=== PATIENT | female | born 1995 | race Caucasian/White ===

== ENCOUNTER 2017-04-04 16:14 | Emergency (ER) | payer OTHER ==
[2017-04-04] MEDS ORDERED: ONDANSETRON ODT 4 MG TABLET TL STA (16:47)
--- NOTE | 2017-04-04 16:51 | ED Physician Documentation ---
PD HPI NVD - Stated complaint Stated Complaint: DIZZY/VOMITING - Chief complaint Chief Complaint: Abd Pain - History obtained from History obtained from: Patient, Family - History of Present Illness Timing - onset: Enter time (0900), Today Timing - duration: Hours Timing - details: Gradual onset, Still present Associated symptoms: Abdominal pain, Dizzy, Loss of appetite Contributing factors: No: Sick contact, Bad food Improved by: Laying still, Meds Similar symptoms before: No diagnosis Recently seen: Not recently seen - Additonal information Additional information: 21 y/o female has had nausea for years. Today she has had vomiting a number of times and she is dizzy. Review of Systems Constitutional: denies: Fever Eyes: denies: Decreased vision Ears: denies: Ear pain Nose: denies: Rhinorrhea / runny nose, Congestion Throat: denies: Sore throat Cardiac: denies: Chest pain / pressure, Palpitations Respiratory: denies: Dyspnea, Cough GI: reports: Abdominal Pain, Nausea, Vomiting. denies: Constipation, Diarrhea : denies: Dysuria, Frequency PD PAST MEDICAL HISTORY - Past Medical History Past Medical History: No - Past Surgical History Past Surgical History: Yes HEENT: Tonsil/Adenoidectomy - Present Medications Home Medications: Ambulatory Orders Medication Instructions Recorded Confirmed Ondansetron Odt [Zofran] 4 mg TL Q6H PRN #10 tablet 04/04/17 - Allergies Allergies/Adverse Reactions: Allergies Allergy/AdvReac Type Severity Reaction Status Date / Time No Known Drug Allergies Allergy Verified 04/04/17 16:23 - Social History Does the pt smoke?: No Smoking Status: Never smoker Does the pt drink ETOH?: No Does the pt have substance abuse?: No - Immunizations Immunizations are current?: Yes PD ED PE NORMAL - Vitals Vital signs reviewed: Yes (tachy and hypertentsive) - General General: Alert and oriented X 3, No acute distress, Well developed/nourished - HEENT HEENT: Atraumatic, PERRL, EOMI, Ears normal, Moist mucous membranes, Pharynx benign, Dentition benign - Neck Neck: Supple, no meningeal sign, No bony TTP - Cardiac Cardiac: RRR, No murmur - Respiratory Respiratory: No respiratory distress, Clear bilaterally - Abdomen Abdomen: Soft, Non tender - Back Back: No CVA TTP, No spinal TTP - Derm Derm: Normal color, Warm and dry, No rash - Extremities Extremities: No deformity, No edema - Neuro Neuro: No motor deficit, No sensory deficit - Psych Psych: Normal mood, Normal affect Results - Vitals Vitals: Vital Signs - 24 hr 04/04/17 16:20 Temperature 36.8 C Heart Rate 104 H Respiratory 18 Rate Blood Pressure 149/99 H O2 Saturation 99 Oxygen O2 Source Room air - Labs Labs: Laboratory Tests 04/04/17 04/04/17 04/04/17 16:50 17:00 17:00 WBC 9.4 RBC 4.68 Hgb 14.0 Hct 41.5 MCV 88.8 MCH 30.0 MCHC 33.8 RDW 12.5 Plt Count 321 MPV 7.4 L Neut # 5.7 Lymph # 2.8 [place] # 0.8 Eos # 0.1 Baso # 0.1 Absolute Nucleated RBC 0.00 Nucleated RBCs 0.0 Sodium 138 Potassium 3.9 Chloride 99 L Carbon Dioxide 30 Anion Gap 9.0 BUN 11 Creatinine 0.8 Estimated GFR (MDRD) 90 Glucose 90 Calcium 9.7 Total Bilirubin 0.5 AST 21 ALT 16 Alkaline Phosphatase 36 L Total Protein 7.9 Albumin 4.8 Globulin 3.1 Albumin/Globulin Ratio 1.5 Lipase 27 Urine Color YELLOW Urine Clarity CLEAR Urine pH 6.0 Ur Specific [place] 1.015 Urine Protein NEGATIVE Urine Glucose (UA) NEGATIVE Urine Ketones NEGATIVE Urine Occult Blood SMALL H Urine Nitrite NEGATIVE Urine Bilirubin NEGATIVE Urine Urobilinogen 0.2 (NORMAL) Ur Leukocyte Esterase NEGATIVE Urine RBC 0-5 Urine WBC 0-3 Ur Squamous Epith Cells MANY Squamous H Urine Bacteria Few Ur Microscopic Review INDICATED Urine Culture Comments NOT INDICATED Urine HCG, Qual NEGATIVE Procedures - IVC sono (time) 1640 Bedside IVC sono: IVC measures (cm) (1.66), IVC collapsed c insp (cm) (1.34), Euvolemia PD MEDICAL DECISION MAKING - ED course Complexity details: reviewed old records, reviewed results, re-evaluated patient , considered differential, d/w patient, d/w family ED course: 21 y/o female with vomiting today associated with dizziness is found to be euvolemic and she is given zofran. She has had a problem with nausea for years and she usually does not have vomiting. Today she feels this is related to anxiety and she feels the daily nausea is realted to anxiety as well. She has been on prozac previously and zolft as a child and she is reluctant to do counselling. 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 This can happen from the stress of the visit itself, from a current illness or circumstance or from uncontrolled hypertension. If you take blood pressure medications take your usual mediations, have your blood pressure re-checked in an appropriate setting and follow up any elevation with your primary care doctor.
[2017-04-04 17:08] LABS: BILIRUBIN,URINE NEGATIVE (NEGATIVE)
[2017-04-04 17:09] LABS: BASOPHILS # (AUTO) 0.1 10^3/uL (0.0-0.1); BASOPHILS % (AUTO) 0.6 %; EOSINOPHILS # (AUTO) 0.1 10^3/uL (0.0-0.7); EOSINOPHILS % (AUTO) 1.2 %; HCT - HEMATOCRIT 41.5 % (37.0-47.0); LYMPHOCYTES # (AUTO) 2.8 10^3/uL (1.5-3.5); LYMPHOCYTES % (AUTO) 29.5 %; MEAN CORPUSCULAR HGB CONC 33.8 g/dL (32.0-36.0); MEAN CORPUSCULAR VOLUME 88.8 fL (81.0-99.0); MEAN PLATELET VOLUME 7.4 fL (7.9-10.8); MONOCYTES # (AUTO) 0.8 10^3/uL (0.0-1.0); NEUTROPHILS # (AUTO) 5.7 10^3/uL (1.5-6.6); NEUTROPHILS % (AUTO) 60.7 %; RED BLOOD COUNT 4.68 10^6/uL (4.20-5.40); RED CELL DISTRIBUTION WIDTH 12.5 % (12.0-15.0); UNCORRECTED WHITE BLOOD COUNT 9.4 x10^3/uL; WHITE BLOOD COUNT 9.4 x10^3/uL (4.8-10.8)
[2017-04-04] MEDS ORDERED: ONDANSETRON ODT 4 MG TABLET ONE (17:10)
[2017-04-04 17:12] LABS: HCG UR QUAL NEGATIVE; UA w/ MICROSCOPIC CHARGE YES
[2017-04-04 17:23] LABS: ALBUMIN/GLOBULIN RATIO 1.5 (1.0-2.2); BILIRUBIN,TOTAL 0.5 mg/dL (0.2-1.0); CALCIUM 9.7 mg/dL (8.5-10.3); CREATININE 0.8 mg/dL (0.4-1.0); POTASSIUM 3.9 mmol/L (3.5-5.0); TOTAL PROTEIN 7.9 g/dL (6.7-8.2)
[2017-04-04 17:25] LABS: UR CULTURE IF IND NOT INDICATED; WBC,URINE 0-3 /HPF (0-5)
[2017-04-04 18:23] VITALS: BP 142/80
== END 2017-04-04 18:21 | disposition home or self-care (01) ==
LOC: ED 16:14
DX: F41.9 Anxiety disorder, unspecified (principal); R11.2 Nausea with vomiting, unspecified
CPT/HCPCS: 36415; 80053; 81001; 81025; 83690; 85025; 99283; 99284; Q0162; 81003; 87086

== ENCOUNTER 2017-08-05 18:06 | Emergency (ER) | payer OTHER ==
[2017-08-05] MEDS ORDERED: HYDROmorphone 1 MG/ML CARPUJECT IVP STA ×2 (18:52→22:08)
[2017-08-05] MEDS ORDERED: ONDANSETRON 4 MG/2 ML VIAL IVP STA (18:52)
[2017-08-05] MEDS ORDERED: SODIUM CHLORIDE 0.9% 1,000 ML IV ONE (18:52)
--- NOTE | 2017-08-05 18:54 | ED Physician Documentation ---
History of Present Illness - Stated complaint Stated Complaint: FEMALE - Chief complaint Chief Complaint: Abd Pain - History obtained from History obtained from: Patient, Family - History of Present Illness Timing: How many days ago (10) Pain level max: 10 Pain level now: 10 Improved by: Nothing Worsened by: Movement, palpation - Additonal information Additional information: Patient is a 22-year-old female who presents to the emergency department with abdominal pain and pelvic pain for the past 10 days. States in the right lower quadrant/right pelvic area. Worse with movement. States that the pain has spread to her back and upper back. States that nothing is helping the pain. Has been taking Motrin and Tylenol without relief. No fevers. Started vaginal bleeding today. Has approximately 2-3 days late for her menses. Review of Systems Ten Systems: 10 systems reviewed and negative Constitutional: denies: Fever, Chills Nose: denies: Rhinorrhea / runny nose, Congestion Throat: denies: Sore throat Cardiac: denies: Chest pain / pressure Respiratory: denies: Cough GI: denies: Nausea, Vomiting, Diarrhea : reports: Missed period (last menses was light and spotting. Her current menses is heavier than usual). denies: Dysuria, Frequency, Hesitancy, Discharge , Now EGA Skin: denies: Rash Musculoskeletal: denies: Neck pain, Back pain Neurologic: denies: Focal weakness, Numbness, Headache PD PAST MEDICAL HISTORY - Past Medical History Past Medical History: Yes Psych: Depression, Anxiety - Past Surgical History Past Surgical History: Yes HEENT: Tonsil/Adenoidectomy - Present Medications Home Medications: Ambulatory Orders Medication Instructions Recorded Confirmed Acetaminophen [Tylenol] 1,000 mg PO BID 08/05/17 08/05/17 Alprazolam [Xanax] 0.5 mg PO DAILY 08/05/17 08/05/17 Metronidazole [Flagyl] 500 mg PO BID #14 tablet 08/05/17 Oxycodone HCl/Acetaminophen 1 - 2 each PO Q6H PRN #20 tablet 08/05/17 [Percocet 5-325 mg Tablet] Sertraline [Zoloft] 75 mg PO DAILY 08/05/17 08/05/17 - Allergies Allergies/Adverse Reactions: Allergies Allergy/AdvReac Type Severity Reaction Status Date / Time No Known Drug Allergies Allergy Verified 04/04/17 16:23 - Social History Does the pt smoke?: No Smoking Status: Never smoker Does the pt drink ETOH?: No Does the pt have substance abuse?: No - Immunizations Immunizations are current?: Yes PD ED PE NORMAL - Vitals Vital signs reviewed: Yes - General General: Alert and oriented X 3, No acute distress, Well developed/nourished - HEENT HEENT: PERRL, Moist mucous membranes - Neck Neck: Supple, no meningeal sign - Cardiac Cardiac: RRR, Strong equal pulses - Respiratory Respiratory: No respiratory distress, Clear bilaterally - Abdomen Abdomen: Soft, Non distended, Other (diffusely TTP. voluntary guarding. no peritoneal signs. 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 No masses. No cervical motion tenderness or adnexal tenderness. Slight white vaginal discharge present) - Back Back: No CVA TTP, No spinal TTP - Derm Derm: Warm and dry, No rash - Extremities Extremities: No edema, No calf tenderness / cord - Neuro Neuro: Alert and oriented X 3 - Psych Psych: Normal mood, Normal affect Results - Vitals Vitals: Vital Signs - 24 hr 08/05/17 08/05/17 18:17 22:07 Temperature 36.8 C 36.3 C L Heart Rate 82 73 Respiratory 16 16 Rate Blood Pressure 138/91 H 134/68 H O2 Saturation 97 96 Oxygen O2 Source Room air - Labs Labs: Microbiology 08/05/17 22:40 JENNIFER Preparation - Final Other - Vaginal 08/05/17 22:40 Wet Prep - Final Vaginal Laboratory Tests 08/05/17 08/05/17 08/05/17 18:41 18:59 18:59 WBC 7.6 RBC 4.39 Hgb 13.2 Hct 39.0 MCV 88.9 MCH 30.1 MCHC 33.8 RDW 12.4 Plt Count 297 MPV 7.6 L Neut # 3.8 Lymph # 2.9 [place] # 0.6 Eos # 0.2 Baso # 0.1 Absolute Nucleated RBC 0.00 Nucleated RBC % 0.0 Sodium 139 Potassium 3.7 Chloride 102 Carbon Dioxide 27 Anion Gap 10.0 BUN 17 Creatinine 0.8 Estimated GFR (MDRD) 89 Glucose 87 Calcium 9.8 Total Bilirubin 0.2 AST 19 ALT 13 Alkaline Phosphatase 44 Total Protein 8.2 Albumin 4.9 Globulin 3.3 Albumin/Globulin Ratio 1.5 Lipase 39 Urine Color YELLOW Urine Clarity HAZY Urine pH 6.0 Ur Specific [place] 1.020 Urine Protein NEGATIVE Urine Glucose (UA) NEGATIVE Urine Ketones NEGATIVE Urine Occult Blood LARGE H Urine Nitrite NEGATIVE Urine Bilirubin NEGATIVE Urine Urobilinogen 0.2 (NORMAL) Ur Leukocyte Esterase NEGATIVE Urine RBC TNTC H Urine WBC 4-5 Ur Squamous Epith Cells NONE SEEN Urine Bacteria None Seen Ur Microscopic Review INDICATED Urine Culture Comments NOT INDICATED Urine HCG, Qual NEGATIVE - Rads (name of study) CT abdomen and pelvis Radiology: Prelim report reviewed, EMP read contemporaneously, See rad report ( Normal abdomen and pelvis CT. ) Pelvic ultrasound Radiology: Prelim report reviewed, EMP read contemporaneously, See rad report ( Normal sonographic appearance of the pelvis) PD MEDICAL DECISION MAKING - ED course Complexity details: reviewed results, re-evaluated patient, considered differential, d/w patient, d/w family ED course: Patient is a 22-year-old female who presents to the emergency department with 10 days worth of pelvic/abdominal/back pain. Unclear etiology. Will treat for bacterial vaginitis. No acute findings on laboratory testing, urinalysis, CT or US. Pain well controlled. Tolerating p.o. without difficulty. Afebrile. No evidence of , ectopic . Appears to have menorrhagia from her last menses that was very light. Patient and family counseled regarding signs and symptoms for which I believe and urgent re-evaluation would be necessary. Patient with good understanding of and agreement to plan and is comfortable going home at this time This document was made in part using voice recognition software. While efforts are made to proofread this document, sound alike and grammatical errors may occur. Departure - Departure Disposition: Home, Self Care Clinical Impression: Bacterial vaginitis Abdominal pain Qualifiers: Abdominal location: unspecified location Qualified Code(s): R10.9 - Unspecified abdominal pain Menorrhagia Qualifiers: Menorrahagia type: with regular cycle Qualified Code(s): N92.0 - Excessive and frequent menstruation with regular cycle Condition: Good Instructions: ED Abdominal Pain Unkn Cause, ED Bleeding Menstrual Heavy, ED Vaginosis Bacterial Follow-Up: ISABELA BELLE MD [Physician No Access] - Within 1 week Prescriptions: Metronidazole [Flagyl] 500 mg PO BID #14 tablet Oxycodone HCl/Acetaminophen [Percocet 5-325 mg Tablet] 1 - 2 each PO Q6H PRN # 20 tablet PRN Reason: pain Comments: Take the Flagyl until gone. Return if you worsen. The cause of your symptoms is unclear, but may be related to bacterial vaginitis. We did send testing for gonorrhea and chlamydia, even though your low risk in your exam does not appear consistent with this. Your CT scan and pelvic ultrasound were both normal. Your laboratory testing is normal. Do not drink alcohol or drive while on narcotic pain medicine. Note that many narcotic pain relievers also contain tylenol/acetaminophen. Please ensure that your total dose of acetaminophen from all sources does not exceed 3 grams (3000mg) per day. You may constipated on this medication, take a stool softener such as "Colace" twice a day while you are on it. Also recommend a wavi-[id number] laxative such as senna or MiraLAX any day that you do not have a bowel movement. If you received narcotic pain medication in the emergency department, do not drive or operate machinery for the next 24 hours. Do not drink alcohol with the Flagyl as it may make you very ill. Your blood pressure was elevated today on check in to the emergency department. This does not mean that you have hypertension, it is a common phenomenon to check into the emergency department and have elevated blood pressure. I recommend that you see your primary care physician within the week to have it rechecked when you're feeling better. Discharge Date/Time: 08/05/17 23:36
[2017-08-05 19:02] LABS: BILIRUBIN,URINE NEGATIVE (NEGATIVE)
[2017-08-05 19:03] LABS: HCG UR QUAL NEGATIVE; UA w/ MICROSCOPIC CHARGE YES
[2017-08-05 19:09] LABS: BASOPHILS # (AUTO) 0.1 10^3/uL (0.0-0.1); BASOPHILS % (AUTO) 0.9 %; EOSINOPHILS # (AUTO) 0.2 10^3/uL (0.0-0.7); HGB - HEMOGLOBIN 13.2 g/dL (12.0-16.0); LYMPHOCYTES # (AUTO) 2.9 10^3/uL (1.5-3.5); LYMPHOCYTES % (AUTO) 37.8 %; MEAN CORPUSCULAR HEMOGLOBIN 30.1 pg (27.0-31.0); MEAN CORPUSCULAR HGB CONC 33.8 g/dL (32.0-36.0); MEAN CORPUSCULAR VOLUME 88.9 fL (81.0-99.0); MEAN PLATELET VOLUME 7.6 fL (7.9-10.8); MONOCYTES # (AUTO) 0.6 10^3/uL (0.0-1.0); MONOCYTES % (AUTO) 8.2 %; NEUTROPHILS # (AUTO) 3.8 10^3/uL (1.5-6.6); NEUTROPHILS % (AUTO) 50.1 %; RED BLOOD COUNT 4.39 10^6/uL (4.20-5.40); RED CELL DISTRIBUTION WIDTH 12.4 % (12.0-15.0); UNCORRECTED WHITE BLOOD COUNT 7.6 x10^3/uL; WHITE BLOOD COUNT 7.6 x10^3/uL (4.8-10.8)
[2017-08-05] MEDS ORDERED: ONDANSETRON 4 MG/2 ML VIAL ONE (19:09)
[2017-08-05] MEDS ORDERED: HYDROmorphone 1 MG/ML SYRINGE ONE ×2 (19:09→22:15)
[2017-08-05 19:13] LABS: UR CULTURE IF IND NOT INDICATED
[2017-08-05 19:23] LABS: ALBUMIN/GLOBULIN RATIO 1.5 (1.0-2.2); BILIRUBIN,TOTAL 0.2 mg/dL (0.2-1.0); CALCIUM 9.8 mg/dL (8.5-10.3); CREATININE 0.8 mg/dL (0.4-1.0); POTASSIUM 3.7 mmol/L (3.5-5.0); TOTAL PROTEIN 8.2 g/dL (6.7-8.2)
[2017-08-05] MEDS ORDERED: KETOROLAC 15 MG/ML VIAL IVP STA (19:53)
[2017-08-05] MEDS ORDERED: IOPAMIDOL-300 100 ML VIAL ONE (19:59)
[2017-08-05] MEDS ORDERED: SODIUM CHLORIDE FLUSH 0.9% 10 ML SYRINGE IVP ONE ×2 (20:03→22:18)
[2017-08-05] MEDS ORDERED: KETOROLAC 15 MG/ML VIAL ONE (20:03)
[2017-08-05] MEDS ORDERED: IOPAMIDOL-300 100 ML VIAL IVP ONE (20:14)
--- NOTE | 2017-08-05 20:45 | CT Report ---
EXAM: CT ABDOMEN AND PELVIS EXAM DATE: 08/05/2017 08:25 PM. CLINICAL HISTORY: Right lower quadrant abdominal pain COMPARISONS: None. TECHNIQUE: Routine helical CT imaging was performed through the abdomen and pelvis. IV contrast: Amt/ type. Enteric contrast: No. Reconstructions: Coronal and sagittal. In accordance with CT protocol optimization, one or more of the following dose reduction techniques w ere utilized for this exam: automated exposure control, adjustment of mA and/or KV based on patient s ize, or use of iterative reconstructive technique. FINDINGS: Lung Bases: Unremarkable. Liver: Normal. No masses. Gallbladder/Bile Ducts: Unremarkable. Spleen: Normal. Pancreas: Normal. Adrenal Glands: Normal. Kidneys: Normal. No masses or hydronephrosis. Peritoneal Cavity/Bowel: Normal. No free fluid, free air or adenopathy. No masses or acute inflammato ry process. The appendix is well visualized and normal. Pelvic Organs: Normal. The bladder and visualized pelvic organs are within normal limits. Vasculature: No aneurysms or other significant abnormality. Bones: No significant abnormality. Other: None. IMPRESSION: Normal abdomen and pelvis CT. [facility] Referring Provider Line: [phone] SITE ID: [id number]
--- NOTE | 2017-08-05 20:45 | CT Preliminary Report ---
Exam: CT Abdomen/Pelvis W/ IMPRESSION: Normal abdomen and pelvis CT. [facility] SITE ID: [id number]
[2017-08-05 22:08] VITALS: BP 134/68
--- NOTE | 2017-08-05 22:14 | Ultrasound Preliminary Report ---
Exam: US Pelvic Non OB w/Doppler IMPRESSION: Normal sonographic appearance of the pelvis. [facility] SITE ID: [id number]
--- NOTE | 2017-08-05 22:17 | Ultrasound Report ---
EXAM: PELVIC ULTRASOUND EXAM DATE: 08/05/2017 09:59 PM. CLINICAL HISTORY: Right-sided pelvic pain, vaginal bleeding. Right lower quadrant pain for 10 days. COMPARISON: None. TECHNIQUE: Realtime transabdominal pelvic scan performed to identify the uterus and adnexa and as an overview of other pelvic structures, followed by transvaginal scan to provide greater detail of the u terus and adnexa, with static image documentation. FINDINGS: LMP: 08/05/2017 Uterus: Uterus is normal in position and normal in configuration. Uterus measures 7.5 x 5.0 x 3.3 cm . No evident uterine masses. Endometrium: Endometrium measures 4.3 mm. No suspicious thickening or vascularity. Cervix: No suspicious lesion. Right Ovary: Normal in appearance measuring 3.4 x 2.1 x 1.3 cm. Normal blood flow. Left Ovary: Normal in appearance measuring 3.4 x 2.6 x 2.2 cm. Normal blood flow. Fluid: No signficant free fluid. Other: No other significant findings. IMPRESSION: Normal sonographic appearance of the pelvis. [facility] Referring Provider Line: [phone] SITE ID: [id number]
[2017-08-05] MEDS ORDERED: oxyCODONE/ACET 5/325 Prepack 4 PO STA (23:08)
[2017-08-05] MEDS ORDERED: metroNIDAZOLE 250 MG TABLET PO STA (23:08)
[2017-08-05] MEDS ORDERED: metroNIDAZOLE 250 MG TABLET PO ONE (23:26)
[2017-08-05] MEDS ORDERED: oxyCODONE/ACET 5/325 Prepack 4 PO ONE (23:26)
== END 2017-08-05 23:36 | disposition home or self-care (01) ==
LOC: ED 18:06
DX: N76.0 Acute vaginitis (principal); R10.31 Right lower quadrant pain; N92.0 Excessive and frequent menstruation with regular cycle; B02.9 Zoster without complications; R03.0 Elevated blood-pressure reading, without diagnosis of hypertension
CPT/HCPCS: 36415; 74177; 76830; 76856; 80053; 81001; 81025; 83690; 85025; 87210; 87220; 87491; 87591; 93975; 96361; 96374; 96375; 96376; 99284; A9270; J1170; Q9967; 81003; 87086

== ENCOUNTER 2018-01-09 19:06 | Emergency (ER) | payer OTHER ==
[2018-01-09 20:03] LABS: MUDS CUTOFF CONCENTRATIONS CUTOFF CONC BELOW:
[2018-01-09 20:05] LABS: BASOPHILS # (AUTO) 0.1 10^3/uL (0.0-0.1); BASOPHILS % (AUTO) 0.7 %; EOSINOPHILS # (AUTO) 0.1 10^3/uL (0.0-0.7); EOSINOPHILS % (AUTO) 1.2 %; LYMPHOCYTES % (AUTO) 32.7 %; MEAN CORPUSCULAR HEMOGLOBIN 30.1 pg (27.0-31.0); MEAN CORPUSCULAR HGB CONC 34.1 g/dL (32.0-36.0); MEAN CORPUSCULAR VOLUME 88.2 fL (81.0-99.0); MEAN PLATELET VOLUME 7.3 fL (7.9-10.8); MONOCYTES # (AUTO) 0.6 10^3/uL (0.0-1.0); MONOCYTES % (AUTO) 6.4 %; NEUTROPHILS # (AUTO) 5.4 10^3/uL (1.5-6.6); PLT - PLATELET COUNT 331 10^3/uL (130-450); RED BLOOD COUNT 4.67 10^6/uL (4.20-5.40); RED CELL DISTRIBUTION WIDTH 13.2 % (12.0-15.0); WHITE BLOOD COUNT 9.1 x10^3/uL (4.8-10.8)
[2018-01-09 20:10] LABS: HCG UR QUAL NEGATIVE
[2018-01-09 20:13] LABS: BUN - BLOOD UREA NITROGEN 12 mg/dL (6-20); CARBON DIOXIDE - CO2 28 mmol/L (21-32); CHLORIDE 99 mmol/L (101-111); CREATININE 0.6 mg/dL (0.4-1.0); GFR - MDRD 124 (>89); GLUCOSE 94 mg/dL (70-100); SODIUM 138 mmol/L (135-145)
[2018-01-09 20:18] LABS: COCAINE SCREEN URINE NEGATIVE (NEGATIVE); METHAMPHETAMINES SCREEN, URINE NEGATIVE (NEGATIVE); OPIATE SCREEN, URINE NEGATIVE (NEGATIVE)
[2018-01-09 20:19] LABS: AMPHETAMINE SCREEN,URINE NEGATIVE (NEGATIVE); BENZODIAZEPINES SCREEN, URINE NEGATIVE (NEGATIVE); METHADONE SCREEN, URINE NEGATIVE (NEGATIVE); OXYCODONE SCREEN, URINE NEGATIVE (NEGATIVE); PROPOXYPHENE SCREEN, URINE NEGATIVE (NEGATIVE); TRICYCLIC ANTIDEPRESSANT,URINE NEGATIVE (NEGATIVE)
--- NOTE | 2018-01-09 22:02 | ED Physician Documentation ---
PD HPI MHE - Stated complaint Stated Complaint: MHE - Chief complaint Chief Complaint: MHE - History obtained from History obtained from: Patient - History of Present Illness Primary symptom: Depression, Manic, Anxiety Timing - onset: Today Pain level now: 0 Contributing factors: Other (no specific inciting factors). No: Substance abuse - ETOH, Substance abuse - drugs Recently seen: Clinic - Additional information Additional information: several weeks-months of worsening episodes of severe depression and marti. she initially was prescribed ativan for what was initially suspected to be anxiety, but more recently her [facility] doctor suspects bipolar disorder and she is awaiting referral to psychiatry. tonight, she was so depressed that I became concerned for my safety and well-being (per patient). she denies suicidal plan. denies AH /. Review of Systems Psychiatric: reports: Depressed, Anxiety, Insomnia. denies: Suicidal, Homicidal , Hallucinations, Delusions PD PAST MEDICAL HISTORY - Past Medical History Past Medical History: Yes Psych: Depression, Anxiety, Panic attacks Other Past Medical History: referral into [facility] now for psychiatry but waiting approval. - Past Surgical History Past Surgical History: Yes HEENT: Tonsil/Adenoidectomy - Present Medications Home Medications: Ambulatory Orders Medication Instructions Recorded Confirmed Alprazolam [Xanax] 0.5 mg PO DAILY 08/05/17 01/09/18 Escitalopram [Lexapro] 1 tab PO 01/09/18 - Allergies Allergies/Adverse Reactions: Allergies Allergy/AdvReac Type Severity Reaction Status Date / Time No Known Drug Allergies Allergy Verified 04/04/17 16:23 - Social History Does the pt smoke?: No Smoking Status: Never smoker Does the pt drink ETOH?: No Does the pt have substance abuse?: No - Immunizations Immunizations are current?: Yes PD ED PE NORMAL - Vitals Vital signs reviewed: Yes - General General: Alert and oriented X 3, No acute distress, Well developed/nourished - Cardiac Cardiac: RRR, No murmur - Respiratory Respiratory: No respiratory distress, Clear bilaterally - Abdomen Abdomen: Soft, Non tender - Neuro Neuro: Alert and oriented X 3 PD ED PE EXPANDED - Psych Psych: Depressed, Withdrawn Results - Vitals Vitals: Vital Signs - 24 hr 01/09/18 01/09/18 01/09/18 19:35 20:52 23:27 Temperature 36.7 C 36.6 C Heart Rate 104 H 82 86 Respiratory 20 16 17 Rate Blood Pressure 144/88 H 118/77 100/74 O2 Saturation 100 100 97 01/10/18 01/10/18 01/10/18 02:21 02:59 06:53 Temperature Heart Rate 78 76 87 Respiratory 18 18 18 Rate Blood Pressure 128/88 H 122/83 H 132/86 H O2 Saturation 98 97 99 01/10/18 01/10/18 08:05 09:52 Temperature Heart Rate 82 78 Respiratory 16 16 Rate Blood Pressure 130/82 H 109/74 O2 Saturation 100 98 Oxygen O2 Source Room air - Labs Labs: Laboratory Tests 01/09/18 01/09/18 01/09/18 19:50 19:50 19:50 WBC RBC Hgb Hct MCV MCH MCHC RDW Plt Count MPV Neut # Lymph # [place] # Eos # Baso # Absolute Nucleated RBC Nucleated RBC % Sodium Potassium Chloride Carbon Dioxide Anion Gap BUN Creatinine Estimated GFR (MDRD) Glucose Calcium Urine Color LT. YELLOW Urine Clarity CLEAR Urine pH 6.0 Ur Specific [place] <=1.005 <=1.005 Urine Protein NEGATIVE Urine Glucose (UA) NEGATIVE Urine Ketones NEGATIVE Urine Occult Blood TRACE-LYSED Urine Nitrite NEGATIVE Urine Bilirubin NEGATIVE Urine Urobilinogen 0.2 (NORMAL) Ur Leukocyte Esterase NEGATIVE Ur Microscopic Review NOT INDICATED Urine Culture Comments NOT INDICATED Urine HCG, Qual NEGATIVE Urine Opiates Screen NEGATIVE Ur Oxycodone Screen NEGATIVE Urine Methadone Screen NEGATIVE Ur Propoxyphene Screen NEGATIVE Ur Barbiturates Screen NEGATIVE Ur Tricyclics Screen NEGATIVE Ur Phencyclidine Scrn NEGATIVE Ur Amphetamine Screen NEGATIVE U Methamphetamines Scrn NEGATIVE U Benzodiazepines Scrn NEGATIVE Urine Cocaine Screen NEGATIVE U Cannabinoids Screen NEGATIVE Ethyl Alcohol 01/09/18 01/09/18 19:58 19:58 WBC 9.1 RBC 4.67 Hgb 14.0 Hct 41.2 MCV 88.2 MCH 30.1 MCHC 34.1 RDW 13.2 Plt Count 331 MPV 7.3 L Neut # 5.4 Lymph # 3.0 [place] # 0.6 Eos # 0.1 Baso # 0.1 Absolute Nucleated RBC 0.00 Nucleated RBC % 0.0 Sodium 138 Potassium 3.9 Chloride 99 L Carbon Dioxide 28 Anion Gap 11.0 BUN 12 Creatinine 0.6 Estimated GFR (MDRD) 124 Glucose 94 Calcium 10.0 Urine Color Urine Clarity Urine pH Ur Specific [place] Urine Protein Urine Glucose (UA) Urine Ketones Urine Occult Blood Urine Nitrite Urine Bilirubin Urine Urobilinogen Ur Leukocyte Esterase Ur Microscopic Review Urine Culture Comments Urine HCG, Qual Urine Opiates Screen Ur Oxycodone Screen Urine Methadone Screen Ur Propoxyphene Screen Ur Barbiturates Screen Ur Tricyclics Screen Ur Phencyclidine Scrn Ur Amphetamine Screen U Methamphetamines Scrn U Benzodiazepines Scrn Urine Cocaine Screen U Cannabinoids Screen Ethyl Alcohol < 5.0 PD MEDICAL DECISION MAKING - ED course Complexity details: reviewed results, re-evaluated patient, considered differential, d/w patient Departure - Departure Disposition: 01 Home, Self Care Clinical Impression: Bipolar affective disorder Qualifiers: Active/Remission status: currently active Current bipolar episode type: hypomanic Qualified Code(s): F31.0 - Bipolar disorder, current episode hypomanic Condition: Stable Instructions: ED Manic Depression Follow-Up: ISABELA BELLE MD [Primary Care Provider] - Comments: Follow-up with [facility] as planned tomorrow.
[2018-01-10 02:45] LABS: CLARITY,URINE CLEAR (CLEAR); LEUKOCYTE ESTERASE, URINE NEGATIVE (NEGATIVE); NITRITE,URINE NEGATIVE (NEGATIVE); OCCULT BLOOD,URINE TRACE-LYSED (NEGATIVE); PROTEIN,URINE NEGATIVE (NEGATIVE); UROBILINOGEN,URINE 0.2 (NORMAL) E.U./dL (NORMAL)
[2018-01-10 02:46] LABS: BILIRUBIN,URINE NEGATIVE (NEGATIVE); GLUCOSE, URINE (UA) NEGATIVE (NEGATIVE); KETONES,URINE (UA) NEGATIVE (NEGATIVE)
[2018-01-10] MEDS ORDERED: ONDANSETRON ODT 4 MG TABLET TL STA (02:49)
[2018-01-10] MEDS ORDERED: DIPHENOX/ATROPINE 2.5/0.025 MG TABLET PO STA (07:59)
--- NOTE | 2018-01-10 09:24 | ED Physician Documentation ---
ED Addendum - Addendum Addendum: 22-year-old female with symptoms consistent with Bipolar affective disorder as been evaluated by the social studies teacher and an appointment has been made for the next day for her to see the psychiatrist.
[2018-01-10 09:54] VITALS: BP 109/74
== END 2018-01-10 09:54 | disposition home or self-care (01) ==
LOC: ED 19:06
DX: F31.0 Bipolar disorder, current episode hypomanic (principal)
CPT/HCPCS: 36415; 51798; 80048; 80306; 80320; 81003; 81025; 85025; 99283; A9270; Q0162; 81001; 87086; 99284

== ENCOUNTER 2018-09-11 12:24 | Day surgery (SDC) | payer OTHER ==
[2018-09-11 12:58] LABS: BILIRUBIN,URINE NEGATIVE (NEGATIVE); CLARITY,URINE CLEAR (CLEAR); GLUCOSE, URINE (UA) NEGATIVE (NEGATIVE); KETONES,URINE (UA) NEGATIVE (NEGATIVE); LEUKOCYTE ESTERASE, URINE NEGATIVE (NEGATIVE); NITRITE,URINE NEGATIVE (NEGATIVE); OCCULT BLOOD,URINE TRACE-INTA (NEGATIVE); PROTEIN,URINE NEGATIVE (NEGATIVE); UROBILINOGEN,URINE 0.2 (NORMAL) E.U./dL (NORMAL)
[2018-09-11 13:00] LABS: HCG UR QUAL POSITIVE
--- NOTE | 2018-09-11 15:20 | ED Physician Documentation ---
PD HPI FEMALE - Stated complaint Stated Complaint: FEMALE /? - Chief complaint Chief Complaint: Abd Pain - History obtained from History obtained from: Patient - History of Present Illness Timing - onset: Today Timing - duration: Days (1) Timing - details: Abrupt onset, Still present Associated symptoms: Abdominal pain (left lower abd/pelvic), Vaginal bleeding (some clots today). 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 denies: Vomiting, Diarrhea : denies: Dysuria, Frequency, Discharge Skin: denies: Rash, Lesions Musculoskeletal: denies: Neck pain, Back pain PD PAST MEDICAL HISTORY - Past Medical History Cardiovascular: None Respiratory: None Neuro: None Psych: Depression, Anxiety (for which she takes Benzos daily.), Panic attacks - Past Surgical History Past Surgical History: Yes HEENT: Tonsil/Adenoidectomy - Present Medications Home Medications: Ambulatory Orders Medication Instructions Recorded Confirmed Alprazolam [Xanax] 0.5 mg PO DAILY 08/05/17 01/09/18 Escitalopram [Lexapro] 1 tab PO 01/09/18 - Allergies Allergies/Adverse Reactions: Allergies Allergy/AdvReac Type Severity Reaction Status Date / Time No Known Drug Allergies Allergy Verified 09/11/18 12:43 - Social History Does the pt smoke?: No Smoking Status: Never smoker Does the pt drink ETOH?: No Does the pt have substance abuse?: No - Immunizations Immunizations are current?: Yes PD ED PE NORMAL - Vitals Vital signs reviewed: Yes - General General: Alert and oriented X 3, Well developed/nourished, Other (appears in pain) - HEENT HEENT: Pharynx benign - Neck Neck: Supple, no meningeal sign, No adenopathy - Cardiac Cardiac: RRR, No murmur - Respiratory Respiratory: Clear bilaterally - Abdomen Abdomen: Normal bowel sounds, Soft, Non distended, No organomegaly, Other (very tender to palpation LLQ, with some guarding. No rebound nor generalized abd tenderness. ) - Female Female : Deferred - Back Back: No CVA TTP - Derm Derm: Normal color, Warm and dry Results - Vitals Vitals: Oxygen O2 Source Room air - Labs Labs: Laboratory Tests 09/11/18 09/11/18 09/11/18 12:51 15:55 15:55 WBC 7.9 RBC 4.50 Hgb 13.6 Hct 39.6 MCV 88.2 MCH 30.2 MCHC 34.3 RDW 12.5 Plt Count 309 MPV 7.7 L Neut # (Auto) 4.5 Lymph # (Auto) 2.6 [place] # (Auto) 0.6 Eos # (Auto) 0.2 Baso # (Auto) 0.1 Absolute Nucleated RBC 0.01 Nucleated RBC % 0.1 HCG, Quant Urine Color YELLOW Urine Clarity CLEAR Urine pH 8.0 H Ur Specific [place] 1.020 Urine Protein NEGATIVE Urine Glucose (UA) NEGATIVE Urine Ketones NEGATIVE Urine Occult Blood TRACE-INTA Urine Nitrite NEGATIVE Urine Bilirubin NEGATIVE Urine Urobilinogen 0.2 (NORMAL) Ur Leukocyte Esterase NEGATIVE Ur Microscopic Review NOT INDICATED Urine Culture Comments NOT INDICATED Urine HCG, Qual POSITIVE Blood Type B POSITIVE 09/11/18 15:55 WBC RBC Hgb Hct MCV MCH MCHC RDW Plt Count MPV Neut # (Auto) Lymph # (Auto) [place] # (Auto) Eos # (Auto) Baso # (Auto) Absolute Nucleated RBC Nucleated RBC % HCG, Quant 943.66 Urine Color Urine Clarity Urine pH Ur Specific [place] Urine Protein Urine Glucose (UA) Urine Ketones Urine Occult Blood Urine Nitrite Urine Bilirubin Urine Urobilinogen Ur Leukocyte Esterase Ur Microscopic Review Urine Culture Comments Urine HCG, Qual Blood Type PD MEDICAL DECISION MAKING - ED course Complexity details: reviewed results, re-evaluated patient (still with abd pain and tenderness LLQ. ), considered differential (early with left adnexal pain, and a finding of cystic structure with inflammation left adnexa ("ring of fire" appearance). This could be corpus luteum with inflammation although would be consistent finding for ectopic. No IUP seen. Consult with Dr. Ni, RISK ASSESSMENT ANALYST, who felt the patient needed laparoscopy to eval for ectopic, given her pain and the U/S findings. If not ectopic, then will need to have her stop her benzos and substitue in other med for her anxiety/bipolar. Consider Seroquel bid (per UpToDate). ), d/w patient Departure - Departure Disposition: ED Transfer to [facility] Clinical Impression: Early stage of , Pelvic pain Condition: Stable Record reviewed to determine appropriate education?: Yes Discharge Date/Time: 09/11/18 19:50
[2018-09-11] MEDS ORDERED: KETOROLAC 60 MG/2 ML VIAL IVP STA (15:31)
[2018-09-11] MEDS ORDERED: SODIUM CHLORIDE 0.9% 1,000 ML IV ONE (15:31)
[2018-09-11 16:04] LABS: BASOPHILS # (AUTO) 0.1 10^3/uL (0.0-0.1); BASOPHILS % (AUTO) 0.8 %; EOSINOPHILS # (AUTO) 0.2 10^3/uL (0.0-0.7); EOSINOPHILS % (AUTO) 2.1 %; HGB - HEMOGLOBIN 13.6 g/dL (12.0-16.0); LYMPHOCYTES # (AUTO) 2.6 10^3/uL (1.5-3.5); LYMPHOCYTES % (AUTO) 32.8 %; MEAN CORPUSCULAR HEMOGLOBIN 30.2 pg (27.0-31.0); MEAN CORPUSCULAR HGB CONC 34.3 g/dL (32.0-36.0); MEAN CORPUSCULAR VOLUME 88.2 fL (81.0-99.0); MEAN PLATELET VOLUME 7.7 fL (7.9-10.8); MONOCYTES # (AUTO) 0.6 10^3/uL (0.0-1.0); NEUTROPHILS # (AUTO) 4.5 10^3/uL (1.5-6.6); NEUTROPHILS % (AUTO) 57.3 %; PLT - PLATELET COUNT 309 10^3/uL (130-450); RED CELL DISTRIBUTION WIDTH 12.5 % (12.0-15.0); WHITE BLOOD COUNT 7.9 x10^3/uL (4.8-10.8)
--- NOTE | 2018-09-11 17:51 | Ultrasound Report ---
Reason: early , lower abd pain Procedure Date: 09/11/2018 Accession Number: [id number] / [id number] Procedure: US - OB First Trimester CPT Code: FULL RESULT: EXAM: FIRST TRIMESTER OBSTETRIC ULTRASOUND (Less than 11 weeks) EXAM DATE: 09/11/2018 04:00 PM. CLINICAL HISTORY: Early . Lower abdominal pain. LMP: Unknown. COMPARISONS: None. TECHNIQUE: Transabdominal and transvaginal ultrasound examination with static image and cine loop documentation. CLINICAL DATES: Unsure LMP. ASSESSMENT: Gestational Sac: Not visualized. MATERNAL STRUCTURES: Uterus: Anteverted position. 6.7 x 3.8 x 4.6 cm, volume 60 cc. Homogeneous myometrial echotexture. Endometrium: 6 mm. No abnormal vascularity. Cervix: Closed. Right Ovary/Adnexa: The ovary measures 3.5 x 1.3 x 2.7 cm, volume 6.2 cc. Unremarkable. Left Ovary/Adnexa: The ovary measures 3.3 x 3.1 x 3.2 cm, volume 17.0 cc. Contains a corpus luteum cyst measuring 2.4 x 2.0 x 2.1 cm. Free Fluid: None. Other: . IMPRESSION: of unknown location. No intrauterine or extrauterine is seen. Differential includes early IUP, complete missed , occult ectopic. Recommend close clinical follow-up and correlation with serial beta hCG, and follow-up imaging as indicated. RADIA
--- NOTE | 2018-09-11 19:19 | ANESTHESIA ---
Pre-Anesthesia VS, & Labs - Diagnosis Ectopic - Procedure Lap removal ectopic Vital Signs: Temp Pulse Resp BP Pulse Ox 36.6 C 88 16 114/71 98 09/11/18 12:39 09/11/18 12:39 09/11/18 12:39 09/11/18 12:39 09/11/18 12:39 Height 5 ft 7.5 in Weight (kg) 68.039 kg Body Mass Index 23.1 - NPO >8 hours Last Fluid Intake: water @ 1100 - Is Patient ?: Yes - Lab Results Current Lab Results: Laboratory Tests 09/11/18 15:55: HCG, Quant 943.66 09/11/18 15:55: Blood Type B POSITIVE 09/11/18 15:55: WBC 7.9, RBC 4.50, Hgb 13.6, Hct 39.6, MCV 88.2, MCH 30.2, MCHC 34.3, RDW 12.5, Plt Count 309, MPV 7.7 L, Neut # (Auto) 4.5, Lymph # (Auto) 2.6, [place] # (Auto) 0.6, Eos # (Auto) 0.2, Baso # (Auto) 0.1, Absolute Nucleated RBC 0.01, Nucleated RBC % 0.1 Lab results reviewed: Yes Fish Bones: 09/11/18 15:55 Home Medications and Allergies Alprazolam [Xanax] 0.5 mg PO DAILY 08/05/17 Escitalopram [Lexapro] 1 tab PO 01/09/18 Allergies/Adverse Reactions: Allergies Allergy/AdvReac Type Severity Reaction Status Date / Time No Known Drug Allergies Allergy Verified 09/11/18 12:43 Anes History & Medical History - Anesthetic History Anesthesia Complications: reports: No previous complications Family history of Anesthesia Complications: Denies Family history of Malignant Hyperthermia: Denies - Medical History Cardiovascular: reports: None Pulmonary: reports: None Gastrointestinal: reports: None, Other (nausea d/t anxiety) Urinary: reports: None Neuro: reports: None Musculoskeletal: reports: None Endocrine/Autoimmune: reports: None Blood Disorders: reports: None Skin: reports: None Smoking Status: Never smoker Psychosocial: reports: Anxiety - Surgical History Eyes Ears Nose Throat (EENT): Tonsil/Adenoidectomy Exam General: Alert Dental: WNL Mouth Opening: Greater than 4 Fingerbreadths Neck Mobility: Normal Mallampati classification: I Thyromental Distance: greater than 6 cm Respiratory: Lungs clear Cardiovascular: Regular rate Neurological: Normal speech Mental/Cognitive Status: Alert/Oriented X3 Cognitive Status: Within normal limits Plan Anesthesia Type: General Consent for Procedure(s) Verified and Reviewed: Yes Code Status: Attempt Resuscitation ASA classification: 2-Mild systemic disease Is this case an emergency?: Yes
[2018-09-11] MEDS ORDERED: LIDOCAINE 1%-EPI 1:100000 30 ML MDV ONE (19:35)
--- NOTE | 2018-09-11 20:20 | PREOP HISTORY & PHYSICAL ---
DATE OF ADMISSION: 09/11/2018 Physician: Tena Ni DO FACOG IDENTIFICATION: This is a 23-year-old G1, P0, LMP 08/08/2018. HISTORY OF PRESENT ILLNESS: Patient presents to [facility] Emergency Department today after she awoke to excruciating pain. The pain was noted to be 8-9/10. She was passing clots. Her pain was described in the lower left quadrant, without any radiation. The pain is described as pressure-like and the pain comes and goes. The pain still continues in emergency department, but it is not as intense, secondary to medications. Patient states that she denies any dysuria, diarrhea or constipation. She is not currently having any bleeding. Patient did take a home test, which came back as positive. PAST MEDICAL HISTORY 1. Bipolar disease. 2. Panic attacks. Her [facility] physician: Dr. Sam. PAST SURGICAL HISTORY: Tonsillectomy. ALLERGIES: NO KNOWN DRUG ALLERGIES. She does use [facility] in [place]. MEDICATIONS: Patient is only on Klonopin 2 mg 1 tab p.o. daily. She states that she cannot tolerate SNRIs or SSRIs since they cause her to both vomit and black out. SOCIAL HISTORY: She denies any tobacco, alcohol or illicit drug use. 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 Patient's mom unfortunately of suicide, secondary to bipolar disease. She did take care of her mom as a child. She is very sensitive to her psychological status. She feels that she can control her bipolar disease with hugging her pet dogs. Patient is from [place], but was born in [place], [place]. Her is Cedric, who is in the [employer]. He has a planned detachment for education in October for 3 months. PAST OBSTETRICAL HISTORY: Primigravida. This is not a planned , but much wanted. PAST GYNECOLOGIC HISTORY: She states that all Paps have been within normal limits and denies any sexually transmitted diseases. Her periods have been monthly and described as very heavy. She changes a tampon about every hour and does pass clots. She does have significant dysmenorrhea, which is rated at 7/10 pain scale. Both with the NuvaRing and control pills, she feels like she has significant mood swings. FAMILY HISTORY: She denies any female carcinoma. REVIEW OF SYSTEMS: Negative unless otherwise stated. PHYSICAL EXAMINATION VITAL SIGNS: Temperature is 97.9, heart rate is 88, blood pressure 114/71, respiratory rate 16, O2 saturation 98%. GENERAL: Patient is a well-developed, well-nourished, female, in no apparent distress. She is alert and oriented x3. Patient is very pleasant and easy to speak to. Her hair is dyed pink at the tips. She does have a slight anxious presentation. HEENT: Within normal limits. HEART: Rate is regular, no murmurs or rubs. LUNGS: Lungs are clear to auscultation bilaterally. ABDOMEN: Soft. No peritoneal signs. Slight tenderness to palpation of the left lower quadrant. LABORATORY DATA: Reveal a white count of 7.9, H and H of 13.6 and 39.6, platelets of 309. Urinalysis shows too numerous to count RBCs. Urine hCG was positive. Quantitative hCG is 943. OB ultrasound shows an anteverted uterus measuring 6.7 x 3.8 x 4.6 cm. There is homogeneous myometrial echotexture. Endometrium measures 6 mm. Cervix is closed. Right ovary measures 3.5 x 1.3 x 2.7 cm. Left ovary measures 3.3 x 3.1 x 3.2 cm. There is a corpus luteum cyst measuring 2.4 x 2.0 x 2.1 cm. There is no free fluid. The word processor technician's note shows a "ring of fire." ASSESSMENT 1. 23-year-old G1, P0 with an approximately 8-week of unknown location. 2. Desired . PLAN 1. I discussed, with the patient, her options. Option #1 would be to do conservative management and repeat her hCGs. In a normal intrauterine , her hCG should double to about 2000 on , 09/13/2018. However, that is not to say that she may have an ectopic that may rupture between now and then. Should she want conservative management, she needs to be able to present to the emergency department immediately, secondary to ruptured ectopic . Patient's second option is to proceed to diagnostic laparoscopy. I would perform a check to see if the is located in the fallopian tubes. If it is, I would remove that fallopian tube and do a close look at the contralateral tube to tell her an idea of the risk of repeat ectopic . Included in these risks are anesthesia, infection, damage to surrounding organs, which may be an inadvertent laceration, cauterization or ligation of the adjacent intestines, bladder and ureters. Diagnostic laparoscopy in and of itself should not cause a miscarriage, but this is not a guarantee. After all of her questions were answered to her satisfaction, she verbalized her desire to proceed to diagnostic laparoscopy. Consent forms have been signed. 2, I discussed with the patient that I would recommend her to take ibuprofen and Tylenol for pain control and she will be given a prescription for Vicodin for any breakthrough pain that she has. I would like to see the patient in 2 weeks for routine postop visit. TD: 09/11/2018 19:12 ZACH
[2018-09-11] MEDS ORDERED: ACETAMINOPHEN 1,000 MG/100 ML 100 ML IV ONE (20:30)
[2018-09-11] MEDS ORDERED: DEXAMETHASONE 4 MG/ML VIAL IVP ONE (20:30)
[2018-09-11] MEDS ORDERED: PROPOFOL 200 MG/20 ML VIAL IVP ONE (20:30)
[2018-09-11] MEDS ORDERED: SUGAMMADEX 200 MG/2 ML VIAL IVP ONE ×2 (20:30→20:39)
[2018-09-11] MEDS ORDERED: ROCURONIUM 50 MG/5 ML VIAL IVP ONE (20:30)
[2018-09-11] MEDS ORDERED: ESMOLOL 100 MG/10 ML VIAL IVP ONE (20:30)
[2018-09-11] MEDS ORDERED: ePHEDrine 50 MG/ML VIAL IVP ONE (20:30)
[2018-09-11] MEDS ORDERED: LIDOCAINE-MPF 2% 5 ML VIAL IM ONE (20:30)
--- NOTE | 2018-09-11 20:58 | OPERATIVE REPORT ---
Operative Report - Other Other Information/Narrative: Date of Operation: 09/11/2018 Surgeon: Tena Ni DO FACOG Wireworker: None Marketing Clerk: Aidan Alvarez CRNA Anesthesia: GET Pre-op Dx: 1. 23 yo 2. Early of unknown location Pre-op Dx: 1. 23 yo 2. Early 3. No evidence of an ectopic Procedure: Diagnostic laparoscopy Findings: Normal uterus, ovaries and fallopian tubes. No signs of an ectopic . Adhesions between right side wall and intestines. No FHC. Specimens: None Drains: None EBL: None Complications: None [id number]
[2018-09-11] MEDS ORDERED: HYDROmorphone 0.5 MG/0.5 ML SYRINGE IVP PRN (20:59)
[2018-09-11] MEDS ORDERED: LORazepam 2 MG/ML VIAL IVP PRN (20:59)
[2018-09-11] MEDS ORDERED: ONDANSETRON 4 MG/2 ML VIAL IVP PRN (20:59)
[2018-09-11] MEDS ORDERED: HYDROcod/ACETAM 5/325 MG TABLET PO PRN (20:59)
[2018-09-11] MEDS ORDERED: KETOROLAC 30 MG/ML VIAL ONE (21:01)
[2018-09-11] MEDS ORDERED: HYDROmorphone 0.5 MG/0.5 ML SYRINGE ONE (21:01)
[2018-09-11] MEDS ORDERED: LACTATED RINGERS 1,000 ML IV ONE ×2 (21:06→21:07)
[2018-09-11] MEDS ORDERED: oxyCODONE 5 MG TABLET PO PRN (21:26)
[2018-09-11 21:38] VITALS: BP 118/60
--- NOTE | 2018-09-12 06:10 | OPERATIVE REPORT ---
DATE OF OPERATION: 09/11/2018 SURGEON: Tena Ni DO FACOG MOTORS ASSEMBLER: None. MINE ANALYST: Aidan Alvarez CRNA. ANESTHESIA: General endotracheal tube. PREOPERATIVE DIAGNOSES 1. A 23-year-old G1, P0. 2. Early of unknown location. POSTOPERATIVE DIAGNOSES 1. A 20-year-old, G1, P0. 2. Early . 3. No evidence of ectopic . PROCEDURE: Diagnostic laparoscopy. FINDINGS: Normal uterus, ovaries, and fallopian tubes. No signs of ectopic . Adhesions between right sidewall and intestines. No signs of [id number]-[id number]. Normal liver edge. SPECIMENS: None. DRAINS: None. ESTIMATED BLOOD LOSS: None. COMPLICATIONS: None. BRIEF INDICATIONS: Patient presented to [facility] Emergency Department with complaints of acute onset of left lower quadrant pain, vaginal bleeding, and a positive test. Workup showed that she had an hCG of almost 1000. Ultrasound was inconclusive. Given her presentation, I recommended her to either do conservative management, repeating her hCG in 48 hours with the caveat that she must return should she have any signs of an ectopic . Her next option would be to undergo diagnostic laparoscopy to rule out an ectopic with the potential of proceeding to a salpingectomy should be seen in the fallopian tube. After discussing with the patient the risks, benefits, alternatives, indications, and expectations of both options, she decided to proceed with the latter option. She understood that there were intrinsic risks of surgery including anesthesia, hemorrhage, infection, and damage to surrounding organs, which may include but is not limited to an inadvertent laceration, cauterization, or ligation of adjacent intestines, fallopian tubes, and bladder. After her questions were answered to her satisfaction, she verbalized her desire to proceed with surgery. Consent forms have been signed. OPERATION IN DETAIL: Patient was identified, consented, and taken to the operating room where IV access was already in place. She was then given sequential compression devices, which were placed on the lower extremities and turned on. She was then given satisfactory general endotracheal tube anesthesia as per Kamaljit Alvarez CRNA. A timeout was performed, which correctly identified the patient, site of procedure, and the procedure itself. Antibiotics were not indicated in this case. Two laparoscopic port sites were first identified in the abdomen. They were both 5 mm in length. The first one was in the subumbilical fold. The second one in the right lower quadrant, 2 fingerbreadths medial and superior to the anterior superior iliac spine. These incisions were injected with 1% lidocaine with epinephrine. For the entirety of the case, 20 mL were used. Stab incisions were made. Entrance into the abdomen was first made with the Visiport trocar in the subumbilical fold. No trauma to intraabdominal organs was noted. CO2 gas was then used to insufflate the abdomen. A second port was then placed in the right lower quadrant under direct visualization. Inspection of the pelvis revealed a normal uterus, fallopian tubes, and ovaries. There was no sign of an ectopic . A brief inspection of the abdomen revealed some filmy adhesions between the right abdominal sidewall and the intestines. Liver edge was clear of any [id number]. Since there was no ectopic identified, this surgery was then completed. All instruments were removed out the abdomen and the CO2 gas was allowed to egress into the atmosphere, thus relieving the pneumoperitoneum. The 2 laparoscopic port sites were then closed with a single subcuticular stitch of 4-0 Monocryl. Dermabond was placed on top of the incisions. All sponge, lap, and needle counts were correct x2 as per nurse's report. Patient tolerated the procedure well and was taken back to the recovery room in stable and awake condition. She will be discharged home later today, after postoperative criteria are met. Prescriptions for ibuprofen 800 mg, Vicodin 5/325, Tylenol, and her regular benzodiazepine were written. She is to see me in 2 weeks at [facility] for routine postoperative examination. I recommend her to see her [place] physician for repeat hCG in 48 hours to monitor this . Although the was not seen in the fallopian tubes from the abdomen, it does not guarantee that this is a normal . She will be given ectopic and miscarriage precautions. She is to call if she has any worsening fevers, chills, abdominal pain, or vaginal bleeding. TD: 09/11/2018 21:07 ZACH
== END 2018-09-11 18:39 | disposition home or self-care (01) ==
LOC: ED 12:24 → SDS 18:38
PROVIDERS: ATTEND Obstetrics & Gynecology
PROC: 0WJJ4ZZ Inspection of Pelvic Cavity, Percutaneous Endoscopic Approach (ICD-10-PCS; principal; 2018-09-11 19:30)
DX: O20.9 Hemorrhage in early pregnancy, unspecified (principal); O99.341 Other mental disorders complicating pregnancy, first trimester; F31.9 Bipolar disorder, unspecified; F41.0 Panic disorder [episodic paroxysmal anxiety]; Z3A.08 8 weeks gestation of pregnancy
CPT/HCPCS: 36415; 49320; 76801; 76817; 81003; 81025; 84702; 85025; 86900; 86901; 96361; 96374; 99283; 99284; A9270; J0131; J1170; J2060; J7120; 81001; 87086

== ENCOUNTER 2018-09-13 10:02 | Outpatient (CLI) | payer OTHER | END 2018-09-13 10:03 | disposition home or self-care (01) | LOC: LAB 10:02 | PROVIDERS: ATTEND Obstetrics & Gynecology | DX: Z36.9 Encounter for antenatal screening, unspecified (principal) | CPT/HCPCS: 36415; 84702 ==

== ENCOUNTER 2018-09-15 11:20 | Outpatient (CLI) | payer OTHER | END 2018-09-15 11:21 | disposition home or self-care (01) | LOC: LAB 11:20 | PROVIDERS: ATTEND Obstetrics & Gynecology | DX: Z32.02 Encounter for pregnancy test, result negative (principal) | CPT/HCPCS: 36415; 84702 ==

== ENCOUNTER 2018-10-02 09:11 | Outpatient (CLI) | payer OTHER ==
--- NOTE | 2018-10-02 11:08 | Ultrasound Report ---
Reason: TEST POSITIVE Procedure Date: 10/02/2018 Accession Number: [id number] / [id number] Procedure: US - OB 14+ Weeks CPT Code: FULL RESULT: EXAM: FIRST TRIMESTER OBSTETRIC ULTRASOUND (Less than 11 weeks) EXAM DATE: 10/02/2018 10:19 AM. CLINICAL HISTORY: test positive. LMP: Unknown. COMPARISONS: OB First trimester 09/11/2018 3:59 PM. TECHNIQUE: Transabdominal and transvaginal ultrasound examination with static image documentation. ASSESSMENT: Gestational Sac: Single intrauterine. Mean gestational sac diameter: 23 mm = 6 weeks 5 days. Embryo: CRL (crown-rump length) 7.9 mm = 6 weeks 5 days. Cardiac activity: 144 beats per minute. Yolk sac: 3 mm. Amniotic fluid: Not accurately assessed at this gestational age. Early placenta: Not visible at this gestational age. Other: No perigestational fluid collection demonstrated. MATERNAL STRUCTURES: Uterus: Anteverted. Unremarkable. Cervix: Closed. Right Ovary/Adnexa: The ovary measures 2.3 x 1.4 x 1.4 cm, volume 2.4 cc. Unremarkable. Left Ovary/Adnexa: The ovary measures 5.1 x 2.5 x 2.8 cm, volume 19.1 cc. A corpus luteum measuring 2.6 x 2.3 x 2.9 cm identified. Free Fluid: None. Other: None. IMPRESSION: 1. Single viable intrauterine at EGA 6 weeks 5 days with CARMEN 05/23/2019 based on crown-rump length. 2. Assigned dating is CARMEN 05/23/2019 based on current ultrasound. RADIA
== END 2018-10-02 09:12 | disposition home or self-care (01) ==
LOC: DI 09:11
PROVIDERS: ATTEND Obstetrics & Gynecology
DX: Z32.01 Encounter for pregnancy test, result positive (principal)
CPT/HCPCS: 76805

== ENCOUNTER 2018-10-16 11:27 | Emergency (ER) | payer OTHER ==
--- NOTE | 2018-10-16 12:35 | ED Physician Documentation ---
PD HPI FOCAL NEURO - Stated complaint Stated Complaint: NUMNESS JAW TO TOES/9 WKS - Chief complaint Chief Complaint: Neuro - History obtained from History obtained from: Patient - History of Present Illness Timing - onset: How many days ago (1-2 days of some chest pains, tightness, and feeling of numbness from face to toes, mainly left side but some on both.) Timing - duration: Days (1-2) Timing - details: Gradual onset, Waxing and waning Severity of deficit: Moderate Weakness: No: Face, Arm, Hand, Leg, Foot, Right, Left, Other Numbness: Face, Arm, Hand, Leg, Foot, Left Associated symptoms: Chest pain. No: Headache, Nausea / vomiting, Syncope, F ever Contributing factors: positive: Other (9 1/2 weeks ) Baseline status: positive: A&OX3, ambulatory, indep Similar symptoms before: Diagnosis (has various symptoms similar in the past with anxiety episodes.) Recently seen: Clinic (seen by OB last week and referred to OB due to high reisk (due to her anxiety, bipolar problems and meds).) Review of Systems Constitutional: denies: Fever, Chills Nose: denies: Rhinorrhea / runny nose, Congestion Throat: denies: Sore throat Cardiac: reports: Chest pain / pressure. denies: Palpitations Respiratory: denies: Cough GI: reports: Abdominal Pain (crampy intermittent), Nausea. denies: Vomiting, Diarrhea : reports: Frequency, Now EGA (9.5). denies: Dysuria Skin: denies: Rash, Lesions Musculoskeletal: denies: Neck pain, Back pain Psychiatric: reports: Anxiety, Insomnia. denies: Depressed, Suicidal Endocrine: denies: Weight loss PD PAST MEDICAL HISTORY - Past Medical History Past Medical History: Yes Cardiovascular: None Respiratory: None Neuro: None Endocrine/Autoimmune: None GI: None, Other : None Psych: Depression, Anxiety, Bipolar disorder, Panic attacks Musculoskeletal: None Derm: None - Past Surgical History Past Surgical History: Yes HEENT: Tonsil/Adenoidectomy - Present Medications Home Medications: Ambulatory Orders Medication Instructions Recorded Confirmed risperiDONE [Risperdal] 1 mg PO BID #60 tablet 10/16/18 - Allergies Allergies/Adverse Reactions: Allergies Allergy/AdvReac Type Severity Reaction Status Date / Time No Known Drug Allergies Allergy Verified 10/16/18 11:55 - Social History Does the pt smoke?: No Smoking Status: Never smoker Does the pt drink ETOH?: No Does the pt have substance abuse?: No - Immunizations Immunizations are current?: Yes PD ED PE NORMAL - Vitals Vital signs reviewed: Yes - General General: Alert and oriented X 3, No acute distress (but seems anxious), Well developed/nourished - HEENT HEENT: Pharynx benign - Neck Neck: Supple, no meningeal sign, No adenopathy - Cardiac Cardiac: RRR, No murmur - Respiratory Respiratory: Clear bilaterally - Abdomen Abdomen: Normal bowel sounds, Soft, Non tender, Non distended - Female Female : Deferred, Other (bedside U/S showed normal IUP with FHR. ) - Back Back: No CVA TTP, No spinal TTP - Derm Derm: Normal color, Warm and dry - Extremities Extremities: No deformity, Normal ROM s pain, No calf tenderness / cord - Neuro Neuro: Alert and oriented X 3, No motor deficit, No sensory deficit, Normal speech NIHSS - Level of Consciousness Level of consciousness: (0) Alert, Keenly responsive LOC Questions: (0) Answers both Q's correct LOC Commands: (0) Performs both correctly - Gaze Best Gaze: (0) Normal - Visual Visual: (0) No loss - Facial Palsy Facial Palsy: (0) Normal, symmetrical movement - Motor Arms (both separate) Motor Arm (right): (0) No drift Motor Arm (left): (0) No drift - Motor Legs (both separate) Motor Leg (right): (0) No drift Motor Leg (left): (0) No drift - Limb Ataxia Limb Ataxia: (0) Absent - Sensory Sensory: (0) Normal - Best Language Best Language: (0) No aphasia - Dysarthria Dysarthria: (0) Normal - Extinction and Inattention (formally neg Extinction and inattention: (0) No abnormality - Total Score/Results Total Score/Result: 0 Results - Vitals Vitals: Oxygen O2 Source Room air - Labs Labs: Laboratory Tests 10/16/18 10/16/18 10/16/18 13:08 13:08 13:08 WBC 9.9 RBC 4.36 Hgb 13.3 Hct 38.8 MCV 88.9 MCH 30.4 MCHC 34.2 RDW 13.6 Plt Count 345 MPV 7.5 L Neut # (Auto) 7.6 H Lymph # (Auto) 1.7 Christian # (Auto) 0.5 Eos # (Auto) 0.1 Baso # (Auto) 0.1 Absolute Nucleated RBC 0.00 Nucleated RBC % 0.0 ESR D-Dimer Sodium 137 Potassium 3.6 Chloride 102 Carbon Dioxide 24 Anion Gap 11.0 BUN 9 Creatinine 0.5 Estimated GFR (MDRD) 152 Glucose 84 Calcium 9.4 Magnesium 1.7 Total Bilirubin 0.4 AST 18 ALT 21 Alkaline Phosphatase 32 L Total Protein 7.5 Albumin 4.6 Globulin 2.9 Albumin/Globulin Ratio 1.6 Lipase 32 TSH 1.82 Urine Color Urine Clarity Urine pH Ur Specific Mcle[place] Urine Protein Urine Glucose (UA) Urine Ketones Urine Occult Blood Urine Nitrite Urine Bilirubin Urine Urobilinogen Ur Leukocyte Esterase Ur Microscopic Review Urine Culture Comments Urine Opiates Screen Ur Oxycodone Screen Urine Methadone Screen Ur Propoxyphene Screen Ur Barbiturates Screen Ur Tricyclics Screen Ur Phencyclidine Scrn Ur Amphetamine Screen U Methamphetamines Scrn U Benzodiazepines Scrn Urine Cocaine Screen U Cannabinoids Screen 10/16/18 10/16/18 10/16/18 13:08 13:08 13:40 WBC RBC Hgb Hct MCV MCH MCHC RDW Plt Count MPV Neut # (Auto) Lymph # (Auto) Christian # (Auto) Eos # (Auto) Baso # (Auto) Absolute Nucleated RBC Nucleated RBC % ESR 13 D-Dimer 200.7 Sodium Potassium Chloride Carbon Dioxide Anion Gap BUN Creatinine Estimated GFR (MDRD) Glucose Calcium Magnesium Total Bilirubin AST ALT Alkaline Phosphatase Total Protein Albumin Globulin Albumin/Globulin Ratio Lipase TSH Urine Color YELLOW Urine Clarity CLEAR Urine pH 6.0 Ur Specific Mcleod 1.010 Urine Protein NEGATIVE Urine Glucose (UA) NEGATIVE Urine Ketones 15 H Urine Occult Blood TRACE-LYSE Urine Nitrite NEGATIVE Urine Bilirubin NEGATIVE Urine Urobilinogen 0.2 (NORMAL) Ur Leukocyte Esterase NEGATIVE Ur Microscopic Review NOT INDICATED Urine Culture Comments NOT INDICATED Urine Opiates Screen NEGATIVE Ur Oxycodone Screen NEGATIVE Urine Methadone Screen NEGATIVE Ur Propoxyphene Screen NEGATIVE Ur Barbiturates Screen NEGATIVE Ur Tricyclics Screen NEGATIVE Ur Phencyclidine Scrn NEGATIVE Ur Amphetamine Screen NEGATIVE U Methamphetamines Scrn NEGATIVE U Benzodiazepines Scrn NEGATIVE Urine Cocaine Screen NEGATIVE U Cannabinoids Screen NEGATIVE PD MEDICAL DECISION MAKING - ED course Complexity details: reviewed results, considered differential (the extent of the numbness is unusual. given some chest pain, could consider vascular. will get d-dimer, as prefer not doing CT scan in . ), d/w patient Departure - Departure Disposition: 01 Home, Self Care Clinical Impression: Anxiety and depression Qualifiers: Weeks of gestation: 9 weeks Qualified Code(s): Z3A.09 - 9 weeks gestation of Bipolar affective disorder Qualifiers: Active/Remission status: remission status unspecified Qualified Code(s): F31.9 - Bipolar disorder, unspecified Condition: Stable Record reviewed to determine appropriate education?: Yes Follow-Up: ISABELA BELLE MD [Primary Care Provider] - Prescriptions: risperiDONE [Risperdal] 1 mg PO BID #60 tablet Comments: Drink lots of fluids. Tylenol 650 mg 4 times a day as needed for pains. You can add ibuprofen if needed for pains as well up to about 30 weeks . F or your anxiety and sleep, we will start risperidone medication. I prescribed 1 mg twice a day. I would start at half a tablet (0.5 mg) twice daily and see how you do with that and then go to the 1 mg twice daily if needed. If you find needed mainly for sleep, you could take just the nighttime dose at once a day instead. Follow-up with the [facility] BACKING IN MACHINE TENDER at their soonest appointment. Recheck if needed. Discharge Date/Time: 10/16/18 15:21
[2018-10-16] MEDS ORDERED: ACETAMINOPHEN 325 MG TABLET PO STA (12:54)
[2018-10-16] MEDS ORDERED: ONDANSETRON ODT 4 MG TABLET TL STA (12:55)
[2018-10-16 13:14] LABS: BASOPHILS # (AUTO) 0.1 10^3/uL (0.0-0.1); BASOPHILS % (AUTO) 0.6 %; EOSINOPHILS # (AUTO) 0.1 10^3/uL (0.0-0.7); EOSINOPHILS % (AUTO) 0.6 %; HGB - HEMOGLOBIN 13.3 g/dL (12.0-16.0); LYMPHOCYTES # (AUTO) 1.7 10^3/uL (1.5-3.5); LYMPHOCYTES % (AUTO) 17.2 %; MEAN CORPUSCULAR HEMOGLOBIN 30.4 pg (27.0-31.0); MEAN CORPUSCULAR HGB CONC 34.2 g/dL (32.0-36.0); MEAN CORPUSCULAR VOLUME 88.9 fL (81.0-99.0); MEAN PLATELET VOLUME 7.5 fL (7.9-10.8); MONOCYTES # (AUTO) 0.5 10^3/uL (0.0-1.0); MONOCYTES % (AUTO) 4.8 %; NEUTROPHILS # (AUTO) 7.6 10^3/uL (1.5-6.6); NEUTROPHILS % (AUTO) 76.8 %; PLT - PLATELET COUNT 345 10^3/uL (130-450); RED BLOOD COUNT 4.36 10^6/uL (4.20-5.40); RED CELL DISTRIBUTION WIDTH 13.6 % (12.0-15.0); WHITE BLOOD COUNT 9.9 x10^3/uL (4.8-10.8)
[2018-10-16 13:30] LABS: ALBUMIN 4.6 g/dL (3.2-5.5); ALBUMIN/GLOBULIN RATIO 1.6 (1.0-2.2); BILIRUBIN,TOTAL 0.4 mg/dL (0.2-1.0); CALCIUM 9.4 mg/dL (8.5-10.3); CREATININE 0.5 mg/dL (0.4-1.0); MAGNESIUM 1.7 mg/dL (1.7-2.8); TOTAL PROTEIN 7.5 g/dL (6.7-8.2)
[2018-10-16 13:44] LABS: MUDS CUTOFF CONCENTRATIONS CUTOFF CONC BELOW:
[2018-10-16 13:48] LABS: BILIRUBIN,URINE NEGATIVE (NEGATIVE); GLUCOSE, URINE (UA) NEGATIVE (NEGATIVE); KETONES,URINE (UA) 15 mg/dL (NEGATIVE); LEUKOCYTE ESTERASE, URINE NEGATIVE (NEGATIVE); NITRITE,URINE NEGATIVE (NEGATIVE); OCCULT BLOOD,URINE TRACE-LYSE (NEGATIVE); PROTEIN,URINE NEGATIVE (NEGATIVE); UROBILINOGEN,URINE 0.2 (NORMAL) E.U./dL (NORMAL)
[2018-10-16 13:50] LABS: CLARITY,URINE CLEAR (CLEAR)
[2018-10-16 14:03] LABS: AMPHETAMINE SCREEN,URINE NEGATIVE (NEGATIVE); BENZODIAZEPINES SCREEN, URINE NEGATIVE (NEGATIVE); COCAINE SCREEN URINE NEGATIVE (NEGATIVE); METHADONE SCREEN, URINE NEGATIVE (NEGATIVE); METHAMPHETAMINES SCREEN, URINE NEGATIVE (NEGATIVE); OPIATE SCREEN, URINE NEGATIVE (NEGATIVE); OXYCODONE SCREEN, URINE NEGATIVE (NEGATIVE); PROPOXYPHENE SCREEN, URINE NEGATIVE (NEGATIVE); TRICYCLIC ANTIDEPRESSANT,URINE NEGATIVE (NEGATIVE)
[2018-10-16 15:23] VITALS: BP 135/88
== END 2018-10-16 15:21 | disposition home or self-care (01) ==
LOC: ED 11:27
DX: O99.341 Other mental disorders complicating pregnancy, first trimester (principal); F41.8 Other specified anxiety disorders; Z3A.09 9 weeks gestation of pregnancy
CPT/HCPCS: 36415; 80053; 80306; 81001; 81003; 83690; 83735; 84443; 85025; 85379; 85651; 87086; 99283

== ENCOUNTER 2018-12-18 19:37 | Outpatient (CLI) | payer OTHER ==
[2018-12-18 21:02] VITALS: BP 139/72
== END 2018-12-18 21:45 | disposition home or self-care (01) ==
LOC: WFO 19:37 → FBP 19:39 → WFO 21:45
PROVIDERS: ATTEND Obstetrics & Gynecology
DX: O46.92 Antepartum hemorrhage, unspecified, second trimester (principal); Z3A.19 19 weeks gestation of pregnancy
CPT/HCPCS: 99211

== ENCOUNTER 2018-12-18 21:45 | Emergency (ER) | payer OTHER ==
[2018-12-18 21:55] VITALS: BP 129/82
== END 2018-12-18 22:09 | disposition left against medical advice (07) ==
LOC: ED 21:45
DX: Z53.21 Procedure and treatment not carried out due to patient leaving prior to being seen by health care provider (principal)

== ENCOUNTER 2019-02-02 13:28 | Outpatient (CLI) | payer OTHER ==
[2019-02-02 13:59] LABS: BILIRUBIN,URINE NEGATIVE (NEGATIVE); CLARITY,URINE CLEAR (CLEAR); GLUCOSE, URINE (UA) NEGATIVE (NEGATIVE); KETONES,URINE (UA) NEGATIVE (NEGATIVE); LEUKOCYTE ESTERASE, URINE NEGATIVE (NEGATIVE); NITRITE,URINE NEGATIVE (NEGATIVE); OCCULT BLOOD,URINE NEGATIVE (NEGATIVE); PROTEIN,URINE NEGATIVE (NEGATIVE); UROBILINOGEN,URINE 0.2 (NORMAL) E.U./dL (NORMAL)
[2019-02-02 14:26] LABS: BACTERIA,URINE Rare /HPF (None Seen); RBC,URINE 0-5 /HPF (0-5); SQUAMOUS EPITHELIAL CELL,UR RARE Squamous (<= Few)
[2019-02-02 15:42] LABS: RUPTURE OF MEMBRANES PLUS NEGATIVE (NEGATIVE)
[2019-02-02 16:06] VITALS: BP 120/59
--- NOTE | 2019-02-02 16:25 | Ultrasound Report ---
Reason: 24 weeks, 4 days leaking of fluid Procedure Date: 02/02/2019 Accession Number: [id number] / [id number] Procedure: US - OB Transvaginal CPT Code: FULL RESULT: EXAM: LIMITED OBSTETRICAL ULTRASOUND EXAM DATE: 02/02/2019 03:39 PM. CLINICAL HISTORY: 24 weeks, 4 days leaking of fluid. COMPARISON: None. TECHNIQUE: Real-time sonographic evaluation of the fetus performed by the plate sensitizer. Multiple consumer sales representative static images were saved for review. Additional transvaginal imaging to more accurately evaluate cervical length/placental position/etc. DATING: Established EGA 24 weeks 4 days with CARMEN 05/21/2019. GENERAL EVALUATION [place] . Cardiac activity: 154 bpm. movement: Visualized. Presentation: Cephalic. Placenta: Posterior position. Amniotic fluid: Subjectively normal. ANATOMY Not evaluated. MATERNAL STRUCTURES The cervix is long and closed. There is a subcentimeter echogenic focus on some of the images within the anterior margin of the cervix. Significance of this finding is unclear. Attention to this focus on follow-up imaging recommended as indicated. IMPRESSION: 1. Mercer live intrauterine with gestational age 24 weeks 4 days based on established CARMEN. 2. The cervix is long and closed measuring 3.5 cm. 3. There is a subcentimeter echogenic focus along the anterior cervix on some images. Differential considerations include small fibroid or imaging artifact. Attention to this focus on follow-up imaging recommended as indicated. RADIA
--- NOTE | 2019-02-03 13:39 | DISCHARGE SUMMARY ---
Discharge Summary Condition at Discharge: Stable Discharge Disposition: Home, Self Care - HPI History of Present Illness: S: soaked her pants yesterday with fluid. No leaking since. No VB, no UC. Some feeling of pelvic pressure. O: 120/59, 82, 16, 97.7 Speculum exam by RN: no pooling, negative valsalva. NST 150 baseline with moderate LTV [place] neg Wet mt: BV UA: neg ROM plus: neg Fern: neg FFN neg CL: 3.5 A/P: G1 at 24w4d with bacterial vaginosis. Sensation of pelvic pressure has improved with hydration. No evidence of labor or of rupture of membranes Metronidazole 500mg bid for 7d Follow up regularly scheduled visit labor precautions. - ALLERGIES Allergies/Adverse Reactions: Allergies Allergy/AdvReac Type Severity Reaction Status Date / Time No Known Drug Allergies Allergy Verified 12/18/18 21:55 - MEDICATIONS Home Medications: Ambulatory Orders Medication Instructions Recorded Confirmed risperiDONE [Risperdal] 1 mg PO BID #60 tablet 10/16/18
== END 2019-02-02 17:35 | disposition home or self-care (01) ==
LOC: WFO 13:28 → FBP 13:30 → WFO 17:35
PROVIDERS: ATTEND Obstetrics & Gynecology
DX: O23.592 Infection of other part of genital tract in pregnancy, second trimester (principal); Z3A.24 24 weeks gestation of pregnancy
CPT/HCPCS: 76817; 81001; 82731; 84112; 87086; 87210; 87491; 87591; 99214

== ENCOUNTER 2019-02-12 20:57 | Outpatient (CLI) | payer OTHER ==
[2019-02-12 21:09] VITALS: BP 124/73
--- NOTE | 2019-02-13 00:25 | Ultrasound Report ---
Reason: Decreased movement Procedure Date: 02/12/2019 Accession Number: [id number] / [id number] Procedure: US - OB Limited CPT Code: FULL RESULT: EXAM: LIMITED OBSTETRICAL ULTRASOUND EXAM DATE: 02/12/2019 11:39 PM. CLINICAL HISTORY: Decreased movement. COMPARISON: OB TRANSVAGINAL 02/02/2019 3:16 PM. TECHNIQUE: Real-time sonographic evaluation of the fetus performed by the senior data mining analyst. Multiple inside sales account representative static images were saved for review. DATING: Established EGA 26 weeks 6 days with CARMEN 05/15/2019. GENERAL EVALUATION [place]cer . Cardiac activity: 133 bpm. movement: Visualized. Presentation: Cephalic. Placenta: Posterior position with a left wrap. Amniotic fluid: Normal. NII 17.3 cm. MVP 5.8 cm. IMPRESSION: 1. Mercer live intrauterine with gestational age 26 weeks 6 days based on established CARMEN. 2. Normal amniotic fluid volume, with an NII of 17.3, and a deepest pocket of 5.8. RADIA
== END 2019-02-13 00:40 | disposition home or self-care (01) ==
LOC: WFO 20:57 → FBP 20:59 → WFO 02-13 00:40
PROVIDERS: ATTEND Obstetrics & Gynecology
DX: O36.8120 Decreased fetal movements, second trimester, not applicable or unspecified (principal); Z3A.26 26 weeks gestation of pregnancy
CPT/HCPCS: 76815; 99213

== ENCOUNTER 2019-02-23 15:01 | Outpatient (CLI) | payer OTHER ==
[2019-02-23 15:32] VITALS: BP 120/73
--- NOTE | 2019-02-28 08:11 | PROCEDURE REPORT ---
- HPI Current [facility] 05/17/19 Gestation 28 Weeks and 1 Days 1 Para 0 Vital Signs Temperature 36.7 C 02/23/19 15:21 Heart Rate 96 02/23/19 15:21 Respiratory Rate 18 02/23/19 15:21 Blood Pressure 120/73 02/23/19 15:21 O2 Saturation 98 02/23/19 15:21 Temperature 36.7 C 02/23/19 15:36 Heart Rate 96 02/23/19 15:36 Respiratory Rate 18 02/23/19 15:36 Blood Pressure 120/73 02/23/19 15:36 O2 Saturation 98 02/23/19 15:36 Pt is a 23 yo Primagravida who fell on her left buttox. Didn't land on he abdomen. she was concerned about the baby. - NST Procedure Pt is 28 weeks No contractions, strip acceptable for EGA. - Results and Plan Findings/Impression: No evidence of Harm Pt is Rh +. Plan: Keep Ob followup. Return if nessary
== END 2019-02-23 17:25 | disposition home or self-care (01) ==
LOC: WFO 15:01 → FBP 15:02 → WFO 17:25
PROVIDERS: ATTEND Obstetrics & Gynecology
DX: Z34.03 Encounter for supervision of normal first pregnancy, third trimester (principal)
CPT/HCPCS: 99213

== ENCOUNTER 2019-03-08 14:48 | Outpatient (CLI) | payer OTHER ==
[2019-03-08 15:09] VITALS: BP 144/79
[2019-03-08 16:27] LABS: ALBUMIN/GLOBULIN RATIO 0.9 (1.0-2.2); BILIRUBIN,TOTAL 0.7 mg/dL (0.2-1.0); CALCIUM 9.3 mg/dL (8.5-10.3); CREATININE 0.6 mg/dL (0.4-1.0); TOTAL PROTEIN 6.5 g/dL (6.7-8.2)
[2019-03-08] MEDS ORDERED: diphenhydrAMINE 25 MG CAPSULE PO PRN (16:36)
[2019-03-08 17:45] LABS: BASOPHILS % (AUTO) 0.3 %; EOSINOPHILS # (AUTO) 0.1 10^3/uL (0.0-0.7); EOSINOPHILS % (AUTO) 0.7 %; HGB - HEMOGLOBIN 13.2 g/dL (12.0-16.0); LYMPHOCYTES # (AUTO) 1.9 10^3/uL (1.5-3.5); LYMPHOCYTES % (AUTO) 17.4 %; MEAN CORPUSCULAR HEMOGLOBIN 30.8 pg (27.0-31.0); MEAN CORPUSCULAR HGB CONC 33.8 g/dL (32.0-36.0); MEAN CORPUSCULAR VOLUME 91.2 fL (81.0-99.0); MEAN PLATELET VOLUME 7.8 fL (7.9-10.8); MONOCYTES # (AUTO) 0.8 10^3/uL (0.0-1.0); NEUTROPHILS # (AUTO) 8.3 10^3/uL (1.5-6.6); NEUTROPHILS % (AUTO) 74.6 %; PLT - PLATELET COUNT 296 10^3/uL (130-450); RED BLOOD COUNT 4.28 10^6/uL (4.20-5.40); RED CELL DISTRIBUTION WIDTH 13.5 % (12.0-15.0); WHITE BLOOD COUNT 11.2 x10^3/uL (4.8-10.8)
[2019-03-08 18:13] LABS: CREATININE,URINE 41.6 mg/dL; TOTAL PROTEIN,URINE TIMED < 6 mg/dL
--- NOTE | 2019-03-08 18:53 | PROVIDER PROGRESS NOTE ---
- HPI Chief Complaint: Other Current : Ms Martinez is a 23 y P0 at 30w1d followed by the [facility] for a complicated by bipolar disorder who presented for assessment of generalized pruritus. Ms. Martinez has had worsening pruritus that has kept her from sleeping. Palms and soles of feet are involved as well as the rest of her body. No changes in skin; no rashes/PUPPS. She has had some nausea but no RUQ pain. She reports recurring headaches but has also been experiencing recurent vision changes involving sparkling lights. While she has a history of migraines, she has not had a hisotyr of vision change either outside of or earlier in the current . Endorses FM, denies LOF/VB/CTX. Male: Olvin Vital Signs Temperature 98.1 F 03/08/19 15:02 Heart Rate 102 H 03/08/19 15:02 Respiratory Rate 18 03/08/19 15:02 Blood Pressure 144/79 H 03/08/19 15:02 O2 Saturation 100 03/08/19 15:02 Temperature 98.1 F 03/08/19 15:02 Heart Rate 102 H 03/08/19 15:02 Respiratory Rate 18 03/08/19 15:02 Blood Pressure 144/79 H 03/08/19 15:02 O2 Saturation 100 03/08/19 15:02 - Exam GEN: activily scratching, otherwise NAD CV: mildly tachycardic RESP: wnl NST: Cat I TOCO: quiet LABS: ALT 100 AST 68 HCT 39 PLTs 296 P:C wnl Bile Acids pending - Procedures OB Procedure Performed: NST Diagnosis/Indication for NST: Gestational Hypertension NST Procedure: Cat I tracing TOCO: quiet Date: 03/08/19 - Plan Plan: 23 yo P0 at 30w1d with pruritus/transaminitis/vision change/AL and elevated blood pressures Suspect cholestasis in setting of devleoping pre-eclampsia Cat I tracing Sending patient to [facility] for further evaluation and possibly observation Called OB triage at [facility] and gave report to triage Bile acids pending
[2019-03-08] MEDS ORDERED: risperiDONE 1 MG TABLET PO SCH (21:00)
[2019-03-12 15:47] LABS: CHENODEOXYCHOLIC ACID 3.3 umol/L (< OR = 3.1); CHOLIC ACID 8.4 umol/L (< OR = 1.8); DEOXYCHOLIC ACID 1.4 umol/L (< OR = 2.4)
== END 2019-03-08 19:00 | disposition home or self-care (01) ==
LOC: WFO 14:48 → FBP 14:49 → WFO 19:00
PROVIDERS: ATTEND Obstetrics & Gynecology
DX: O26.893 Other specified pregnancy related conditions, third trimester (principal); L29.9 Pruritus, unspecified; H53.8 Other visual disturbances; R74.0 Nonspecific elevation of levels of transaminase and lactic acid dehydrogenase [LDH]; O13.3 Gestational [pregnancy-induced] hypertension without significant proteinuria, third trimester; Z3A.30 30 weeks gestation of pregnancy; O99.343 Other mental disorders complicating pregnancy, third trimester; F31.9 Bipolar disorder, unspecified; O99.353 Diseases of the nervous system complicating pregnancy, third trimester; G43.909 Migraine, unspecified, not intractable, without status migrainosus
CPT/HCPCS: 36415; 80053; 82542; 82570; 83615; 84156; 84550; 85025; 99213; A9270

== ENCOUNTER 2019-03-10 07:25 | Outpatient (CLI) | payer OTHER ==
[2019-03-10 08:26] LABS: HGB - HEMOGLOBIN 13.4 g/dL (12.0-16.0); MEAN CORPUSCULAR HEMOGLOBIN 31.4 pg (27.0-31.0); MEAN CORPUSCULAR HGB CONC 34.6 g/dL (32.0-36.0); MEAN CORPUSCULAR VOLUME 90.8 fL (81.0-99.0); MEAN PLATELET VOLUME 7.6 fL (7.9-10.8); RED BLOOD COUNT 4.25 10^6/uL (4.20-5.40); RED CELL DISTRIBUTION WIDTH 13.6 % (12.0-15.0); WHITE BLOOD COUNT 9.6 x10^3/uL (4.8-10.8)
[2019-03-10 08:50] LABS: ALBUMIN 3.1 g/dL (3.2-5.5); BILIRUBIN,DIRECT 0.3 mg/dL (0.1-0.5); BILIRUBIN,TOTAL 1.1 mg/dL (0.2-1.0); TOTAL PROTEIN 6.9 g/dL (6.7-8.2)
--- NOTE | 2019-03-10 09:39 | PROVIDER PROGRESS NOTE ---
- HPI Chief Complaint: Other (Pt presented to lab to repeat PIH labs. Ms. Martinez had been sent to [facility] for assessment of her elevated LFTs, headaches, vision changes, and mild hypertension on 03/09/19. She was observed at [facility] and by nursing report, desired to return home. She had her PIH labs checked this am. I called and left a VM indicating that her LFTs continue to show a slow upward trend. I reviewed warnings signs for pre-eclampsia and admonished to have a low threshold for returning for further evaluation.)
== END 2019-03-10 07:26 | disposition home or self-care (01) ==
LOC: LAB 07:25
PROVIDERS: ATTEND Obstetrics & Gynecology
DX: O14.13 Severe pre-eclampsia, third trimester (principal); O26.619 Liver and biliary tract disorders in pregnancy, unspecified trimester
CPT/HCPCS: 36415; 80076; 85027

== ENCOUNTER 2019-03-11 15:12 | Inpatient (IN) | payer OTHER ==
[2019-03-11] MEDS ORDERED: SODIUM CHLORIDE FLUSH 0.9% 10 ML SYRINGE ONE (15:37)
[2019-03-11 15:52] LABS: BASOPHILS % (AUTO) 0.3 %; EOSINOPHILS # (AUTO) 0.1 10^3/uL (0.0-0.7); EOSINOPHILS % (AUTO) 0.7 %; HGB - HEMOGLOBIN 12.6 g/dL (12.0-16.0); LYMPHOCYTES # (AUTO) 1.7 10^3/uL (1.5-3.5); LYMPHOCYTES % (AUTO) 18.8 %; MEAN CORPUSCULAR HEMOGLOBIN 31.6 pg (27.0-31.0); MEAN CORPUSCULAR HGB CONC 34.4 g/dL (32.0-36.0); MEAN CORPUSCULAR VOLUME 91.9 fL (81.0-99.0); MONOCYTES # (AUTO) 0.7 10^3/uL (0.0-1.0); MONOCYTES % (AUTO) 8.1 %; NEUTROPHILS # (AUTO) 6.4 10^3/uL (1.5-6.6); NEUTROPHILS % (AUTO) 72.1 %; PLT - PLATELET COUNT 285 10^3/uL (130-450); RED CELL DISTRIBUTION WIDTH 13.9 % (12.0-15.0); WHITE BLOOD COUNT 8.8 x10^3/uL (4.8-10.8)
[2019-03-11 16:02] LABS: CREATININE,URINE 51.6 mg/dL; PROTEIN/CREATININE RATIO,URINE 0.1 (<=0.2)
[2019-03-11 16:03] LABS: ALBUMIN 3.1 g/dL (3.2-5.5); ALBUMIN/GLOBULIN RATIO 0.9 (1.0-2.2); BILIRUBIN,TOTAL 0.9 mg/dL (0.2-1.0); CALCIUM 8.9 mg/dL (8.5-10.3); CREATININE 0.5 mg/dL (0.4-1.0); TOTAL PROTEIN 6.6 g/dL (6.7-8.2)
[2019-03-11 17:00] LABS: PT - PROTHROMBIN TIME 11.6 secs (9.9-12.6)
[2019-03-11 17:08] LABS: PARTIAL THROMBOPLASTIN TIME 24.3 secs (24.9-33.3)
[2019-03-11] MEDS ORDERED: BETAMETHASONE 30 MG/5 ML VIAL IM SCH (19:08)
[2019-03-11] MEDS ORDERED: DOXYLAMINE 25 MG TABLET PO PRN (19:08)
--- NOTE | 2019-03-11 19:48 | HISTORY & PHYSICAL EXAMINATION ---
Chief Complaint - Chief Complaint Chief Complaint: not feeling right History of Present Illness - History of Present Illness HPI Comment/Other: HPI: Had problems with itching starting about 1 week ago. Flared quite a bit on Thursday 03/08 and came here for evaluation. One blood pressure was elevated and LFTs were as well. Pt was transported to [facility] where she was hospitalized. She reports no steroids given, no meds given, told to f/u in 1d after discharge for blood draw. That blood draw showed more abnormal LFT but pt was not told what to do. Reports normal hepatitis panel and RUQ US during that hospitalization. Itching flared today along with other sx and so she came in. RUQ pain is new and moderate. Headache is new and moderate. Visual changes are constant blurriness. She has visual knuz if she is on her feet for a long t alis. No increase in swelling. No VB, no LOF, no UC. Good FM. PMH: bipolar 1 PSH tonsils in childhood. Diagnostic laparoscopy early this due to unknown location and no IUP on US. Allergies NKDA Meds: celexa, PNV, Fe, unisom nightly SH: lives on [facility] FH: no anomalies OB: care at [facility] with Dr. Carter. Records are NOT available for review; they have been requested. --CARMEN 05/15/19 per pt --Pt is unaware of any problems. ROS: feeling more hypomanic since Dr. Carter increased her celexa dose. O: initial BP 140/93, all the others were normal. Otherwise AVSS Alert, restless, NAD Abd soft, mildly tender in RUQ, no guarding, no rebound. Fundus nontender Patellar DTR 2+ No LE edema Category 1 NST A/P: 23yo G1 at 30w5d per her reported CARMEN with elevated LFT, body-wide pruritis, RUQ pain and tenderness, moderate AL, and blurry vision. Most concerning for r/o cholestasis vs. preeclampsia variant. --Bile acids are pending, were drawn on 03/08/19. LFTs worsening over time. Bilirubin normal. Pt reports normal RUQ US at [facility]. Will start ursadiol 250mg po tid. --P:C ratio was 0 and then 0.1. 24h urine collection starting now. Platelets normal and stable. Reflexes are normal. No LE edema. Most BPs have been solidly normal. Pt has had 2 outliers of 140/93. Was 144/79 on 03/08/19. New headache, blurry vision, and RUQ pain are concerning. --In the absence of proteinuria or sustained elevated blood pressures, I am not yet going to treat her with magnesium for seizure prophylaxis. --Start steroid course: betamethasone 12mg IM now and repeat in 24h. This is the pt's first course. --Obtain records from [facility]. I currently do not have any dating confirmation, anatomy scans, labs, or most recent admission information. --Pt is generally unhappy with her care at [facility] and she prefers to be seen at [facility] or at [facility]. --Bipolar with hypomanic flare following celexa increase. I recommend discontinuing the celexa entirely--it has not helped with mood. Instead can consider lamictal start. Plan to transport to [facility] to Dr. Cathleen RUVALCABA once they have a bed available. Via ground, BLS. History - Past Medical History Cardiovascular: reports: None Respiratory: reports: None Neuro: reports: None Endocrine/Autoimmune: reports: None GI: reports: None, Other : reports: None Psych: reports: Depression, Anxiety, Bipolar disorder, Panic attacks Musculoskeletal: reports: None Derm: reports: None MRSA Hx?: No - Past Surgical History HEENT: reports: Tonsil/Adenoidectomy Meds/Allgy - Home Medications Home Medications: Ambulatory Orders Medication Instructions Recorded Confirmed risperiDONE [Risperdal] 1 mg PO BID #60 tablet 10/16/18 - Allergies Allergies/Adverse Reactions: Allergies Allergy/AdvReac Type Severity Reaction Status Date / Time No Known Drug Allergies Allergy Verified 12/18/18 21:55 Exam - Vital Signs Vital Signs: Vital Signs x48h Temp Pulse Resp BP BP Pulse Ox 03/11/19 18:30 91 133/75 H 03/11/19 18:00 81 136/80 H 03/11/19 17:45 85 129/69 03/11/19 17:30 88 128/72 03/11/19 17:15 93 121/85 H 03/11/19 17:02 92 20 131/67 H 03/11/19 16:45 88 129/74 99 03/11/19 16:30 88 108/51 L 98 03/11/19 16:00 92 18 107/57 L 98 03/11/19 15:45 93 18 114/68 98 03/11/19 15:30 106 H 18 140/93 H 99 03/11/19 15:20 98.1 F 103 H 20 137/80 H 99 03/11/19 15:15 93 108/63 99 Conclusion/Plan - Lab Results Fish Bones: 03/11/19 15:40 03/11/19 15:40
[2019-03-11] MEDS: URSODIOL 250 MG TABLET PO SCH (20:56)
[2019-03-11] MEDS ORDERED: URSODIOL 250 MG TABLET PO ONE (20:58)
[2019-03-11] MEDS ORDERED: ACETAMINOPHEN 500 MG TABLET PO PRN (22:45)
[2019-03-12] MEDS ORDERED: SODIUM CHLORIDE FLUSH 0.9% 10 ML SYRINGE IVP PRN (01:46)
[2019-03-12] MEDS: URSODIOL 250 MG TABLET PO SCH (06:50)
--- NOTE | 2019-03-12 08:42 | PROVIDER PROGRESS NOTE ---
Subjective - Subjective Subjective: Did ok overnight, didn't sleep much. Headache is improved but present, mild, facial. Visual changes are improved, still blurry, no scotoma or flashers RUQ pain is not improved, still moderate, described as a constant "tenderness", not associated with an injury or with change in activity, gradual onset while hospitalized at [facility]. No new sx No VB, LOF, or UC. Good FM. O: AVSS, all BPs totally normal 110s/60s typically. Alert, smiling, restless, NAD Abd soft, tender RUQ mild now. No guard, no rebound. Also new tenderness over round ligament insertion on the left side. 2+ patellar DTR bilat No LE edema Category 1 NST No new studies A/P: 23yo G1 at 30w6d per her reported CARMEN with elevated LFT, body-wide pruritis, RUQ pain and tenderness, moderate AL, and blurry vision. Sx have not worsened over her 16h admission which is reassuring. My current opinion is that pt has likely cholestasis + normal symptoms of . --Bile acids are pending, were drawn on 03/08/19. LFTs worsening over time. Bilirubin normal. Pt reports normal RUQ US at [facility]. On ursadiol 250mg po tid. As far as I know, cholestasis does NOT cause RUQ pain. --P:C ratio was 0 and then 0.1. 2 elevated BP in the past 4 days otherwise totally normal BP. 24h urine collection started last evening Yesterday plts were stable. Reflexes are normal. No LE edema. Ongoing headache, blurry vision, and RUQ pain have improved a bit. This is reassuring--pt has not become very ill. In the absence of proteinuria or sustained elevated blood pressures, she has not been started on magnesium. --Start steroid course: s/p betamethasone 12mg IM on 03/11/19. Repeat in 24h. This is the pt's first course. --In general I feel like many of the pt's symptoms can be related to normal changes and discomforts. Feels light headed with ambulation or with lots of time on her feet. If she pushes this farther then she sees flashers. Has lower abdominal pains c/w round ligament pain. --Obtain records from [facility]. I currently do not have any dating confirmation, anatomy scans, labs, or most recent admission information. --Pt is generally unhappy with her care at [facility] and she prefers to be seen at [facility] or at [facility]. 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 --Bipolar with hypomanic flare following celexa increase. I recommend discontinuing the celexa entirely--it has not helped with mood. Instead can consider lamictal start. Pt did not take her celexa last night. Plan to transport to [facility] to Dr. Cathleen RUVALCABA once they have a bed available. Via ground, BLS. I do still feel like the transport is warranted considering the ongoing unexplained RUQ pain and tenderness. History Objective - Vital Signs/Intake & Output Vital Signs: Vital Signs x48h Temp Pulse Resp BP Pulse Ox 03/12/19 07:47 98.2 F 81 22 111/68 03/12/19 07:03 72 24 101/65 99 03/12/19 06:00 98.1 F 75 22 107/66 98 03/12/19 05:00 97.9 F 88 20 103/60 95 03/12/19 04:00 81 24 108/59 L 95 03/12/19 03:01 87 16 110/55 L 95 03/12/19 02:00 98.6 F 74 20 115/69 97 03/12/19 01:00 89 24 111/56 L 96 - Lab Results Fish Bones: 03/11/19 15:40 03/11/19 15:40 Other Labs: Lab Results x24hrs 03/11/19 03/11/19 03/11/19 Range/Units 16:49 15:40 15:40 WBC 8.8 (4.8-10.8) x10^3/uL RBC 4.00 L (4.20-5.40) 10^6/uL Hgb 12.6 (12.0-16.0) g/dL Hct 36.8 L (37.0-47.0) % MCV 91.9 (81.0-99.0) fL MCH 31.6 H (27.0-31.0) pg MCHC 34.4 (32.0-36.0) g/dL RDW 13.9 (12.0-15.0) % Plt Count 285 (130-450) 10^3/uL MPV 8.0 (7.9-10.8) fL Neut # (Auto) 6.4 (1.5-6.6) 10^3/uL Lymph # (Auto) 1.7 (1.5-3.5) 10^3/uL [place] # (Auto) 0.7 (0.0-1.0) 10^3/uL Eos # (Auto) 0.1 (0.0-0.7) 10^3/uL Baso # (Auto) 0.0 (0.0-0.1) 10^3/uL Absolute Nucleated RBC 0.00 x10^3/uL Nucleated RBC % 0.1 /100WBC PT 11.6 (9.9-12.6) secs INR 1.0 (0.8-1.2) APTT 24.3 L (24.9-33.3) secs Sodium 132 L (135-145) mmol/L Potassium 3.5 (3.5-5.0) mmol/L Chloride 100 L (101-111) mmol/L Carbon Dioxide 20 L (21-32) mmol/L Anion Gap 12.0 (6-13) BUN 8 (6-20) mg/dL Creatinine 0.5 (0.4-1.0) mg/dL Estimated GFR (MDRD) 152 (>89) Glucose 118 H (70-100) mg/dL Calcium 8.9 (8.5-10.3) mg/dL Total Bilirubin 0.9 (0.2-1.0) mg/dL AST 93 H (10-42) IU/L ALT 166 H (10-60) IU/L Alkaline Phosphatase 108 (42-121) IU/L Total Protein 6.6 L (6.7-8.2) g/dL Albumin 3.1 L (3.2-5.5) g/dL Globulin 3.5 (2.1-4.2) g/dL Albumin/Globulin Ratio 0.9 L (1.0-2.2) Urine Creatinine mg/dL Ur Total Protein Timed mg/dL Protein/Creatinin Ratio (<=0.2) 03/11/19 Range/Units 15:20 WBC (4.8-10.8) x10^3/uL RBC (4.20-5.40) 10^6/uL Hgb (12.0-16.0) g/dL Hct (37.0-47.0) % MCV (81.0-99.0) fL MCH (27.0-31.0) pg MCHC (32.0-36.0) g/dL RDW (12.0-15.0) % Plt Count (130-450) 10^3/uL MPV (7.9-10.8) fL Neut # (Auto) (1.5-6.6) 10^3/uL Lymph # (Auto) (1.5-3.5) 10^3/uL [place] # (Auto) (0.0-1.0) 10^3/uL Eos # (Auto) (0.0-0.7) 10^3/uL Baso # (Auto) (0.0-0.1) 10^3/uL Absolute Nucleated RBC x10^3/uL Nucleated RBC % /100WBC PT (9.9-12.6) secs INR (0.8-1.2) APTT (24.9-33.3) secs Sodium (135-145) mmol/L Potassium (3.5-5.0) mmol/L Chloride (101-111) mmol/L Carbon Dioxide (21-32) mmol/L Anion Gap (6-13) BUN (6-20) mg/dL Creatinine (0.4-1.0) mg/dL Estimated GFR (MDRD) (>89) Glucose (70-100) mg/dL Calcium (8.5-10.3) mg/dL Total Bilirubin (0.2-1.0) mg/dL AST (10-42) IU/L ALT (10-60) IU/L Alkaline Phosphatase (42-121) IU/L Total Protein (6.7-8.2) g/dL Albumin (3.2-5.5) g/dL Globulin (2.1-4.2) g/dL Albumin/Globulin Ratio (1.0-2.2) Urine Creatinine 51.6 mg/dL Ur Total Protein Timed 6 mg/dL Protein/Creatinin Ratio 0.1 (<=0.2)
[2019-03-12 08:57] VITALS: BP 125/82
== END 2019-03-12 09:15 | disposition short-term general hospital (02) | DRG 831 ==
LOC: WFO 15:12 → FBP 15:14 → WFO 19:05 → FBP 19:06
PROVIDERS: ADMIT Obstetrics & Gynecology; ATTEND Obstetrics & Gynecology
DX: O26.613 Liver and biliary tract disorders in pregnancy, third trimester (principal); K83.1 Obstruction of bile duct; F31.0 Bipolar disorder, current episode hypomanic; O99.89 Other specified diseases and conditions complicating pregnancy, childbirth and the puerperium; R51 Headache; H53.8 Other visual disturbances; R03.0 Elevated blood-pressure reading, without diagnosis of hypertension; O99.343 Other mental disorders complicating pregnancy, third trimester; F41.0 Panic disorder [episodic paroxysmal anxiety]; Z3A.30 30 weeks gestation of pregnancy; Z79.899 Other long term (current) drug therapy
CPT/HCPCS: 36415; 59025; 80053; 82570; 84156; 85025; 85610; 85730; 99214; A9270; 80074

== ENCOUNTER 2019-03-12 09:18 | Outpatient (CLI) | payer OTHER | END 2019-03-12 09:19 | disposition short-term general hospital (02) | LOC: EMS 09:18 | PROVIDERS: ATTEND Surgery | DX: O99.89 Other specified diseases and conditions complicating pregnancy, childbirth and the puerperium (principal); R10.9 Unspecified abdominal pain | CPT/HCPCS: A0425; A0428 ==

== ENCOUNTER 2019-06-19 20:12 | Emergency (ER) | payer OTHER ==
--- NOTE | 2019-06-19 21:11 | ED Physician Documentation ---
History of Present Illness - Stated complaint Stated Complaint: L SIDE NUMBNESS/AL - Chief complaint Chief Complaint: Neuro - Additonal information Additional information: This is a 24-year-old female with a history of eclampsia with liver failure, as well as Bipolar disorder, who presents with poor coordination, reduced sensation in her left side. Patient developed some left-sided Poor coordination in the last 3 days, and then tonight at around 4 PM she began developing some tingling on the left side. She denies facial droop. She does state that she feels somewhat confused. She started Effexor 2 weeks ago, she is unsure if this could be causing some of her symptoms. She denies abdominal pain or chest pain. Review of Systems Constitutional: denies: Fever Eyes: denies: Loss of vision Throat: denies: Oral lesions / sores Cardiac: denies: Chest pain / pressure Respiratory: denies: Dyspnea GI: denies: Vomiting Neurologic: reports: Numbness Psychiatric: reports: Depressed. denies: Suicidal Immunocompromised: denies: Immunocompromised PD PAST MEDICAL HISTORY - Past Medical History Cardiovascular: None Respiratory: None Neuro: None Endocrine/Autoimmune: None GI: None, Other : None Psych: Depression, Anxiety, Bipolar disorder, Panic attacks Musculoskeletal: None Derm: None - Past Surgical History Past Surgical History: Yes HEENT: Tonsil/Adenoidectomy - Present Medications Home Medications: Ambulatory Orders Medication Instructions Recorded Confirmed RX: risperiDONE [Risperdal] 1 mg PO BID #60 tablet 10/16/18 RX: Acetaminophen 650 mg PO Q6HR #30 tablet 06/20/19 RX: Ibuprofen 600 mg PO Q6H PRN #30 tablet 06/20/19 - Allergies Allergies/Adverse Reactions: Allergies Allergy/AdvReac Type Severity Reaction Status Date / Time fluoxetine [From Prozac] AdvReac Mild Dizziness Verified 03/12/19 05:49 sertraline [From Zoloft] AdvReac Dizziness Verified 03/12/19 05:49 - Social History Does the pt smoke?: No Smoking Status: Never smoker Does the pt drink ETOH?: No Does the pt have substance abuse?: No - Immunizations Immunizations are current?: Yes PD ED PE NORMAL - Vitals Vital signs reviewed: Yes - General General: Alert and oriented X 3, No acute distress - HEENT HEENT: Atraumatic, PERRL - Neck Neck: Supple, no meningeal sign - Cardiac Cardiac: RRR, No murmur - Respiratory Respiratory: Clear bilaterally - Abdomen Abdomen: Normal bowel sounds, Soft, Non tender, Non distended - Derm Derm: Warm and dry - Extremities Extremities: No deformity - Neuro Neuro: Alert and oriented X 3, 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 EOMI, visual pelletier intact, PERRL. On motor exam patient initially has left arm drift and states she cannot lift the arm well, but during the exam raises it to point to things or perform tasks and holds her baby with no weakness whatsoever. She also states she cannot lift her left leg well due to weakness, but with encouragement strength with hip flexion, ankle dorsi-flexion and plantarflexion is 5/5 and symmetric, and pt ambulates to the bathroom independently with normal gait. She states she has some reduced sensation on the entire left side of her body, but is able to feel light touch over her entire face and all extremities. No dysmetria, normal heel-frank testing bilaterally. Stable, narrow-based gait.) - Psych Psych: Normal mood, Normal affect Results - Vitals Vitals: Vital Signs - 24 hr 06/19/19 06/19/19 06/19/19 20:15 21:00 21:31 Temperature 36.8 C Heart Rate 98 78 Respiratory 16 20 16 Rate Blood Pressure 150/92 H 132/91 H O2 Saturation 100 100 06/19/19 06/19/19 06/20/19 21:35 23:02 00:07 Temperature Heart Rate 75 78 60 Respiratory 18 16 16 Rate Blood Pressure 122/83 H 102/90 H 118/75 O2 Saturation 100 96 96 06/20/19 01:47 Temperature Heart Rate 61 Respiratory 15 Rate Blood Pressure 135/75 H O2 Saturation 98 Oxygen O2 Source Room air - EKG (time done) 21:34 Other comments: Other comments (Rate 73, rhythm sinus, no ST segment elevation or depression. Normal intervals) - Labs Labs: Laboratory Tests 06/19/19 06/19/19 06/19/19 20:51 21:40 21:40 WBC RBC Hgb Hct MCV MCH MCHC RDW Plt Count MPV Neut # (Auto) Lymph # (Auto) [place] # (Auto) Eos # (Auto) Baso # (Auto) Absolute Nucleated RBC Nucleated RBC % PT 13.1 H INR 1.2 Sodium 139 Potassium 3.5 Chloride 103 Carbon Dioxide 26 Anion Gap 10.0 BUN 13 Creatinine 0.7 Estimated GFR (MDRD) 102 Glucose 95 POC Whole Bld Glucose 83 Calcium 9.4 Total Bilirubin 0.2 AST 16 ALT 17 Alkaline Phosphatase 45 Total Protein 7.8 Albumin 4.9 Globulin 2.9 Albumin/Globulin Ratio 1.7 Lipase 50 TSH Serum HCG, Qual Urine Color Urine Clarity Urine pH Ur Specific [place] Urine Protein Urine Glucose (UA) Urine Ketones Urine Occult Blood Urine Nitrite Urine Bilirubin Urine Urobilinogen Ur Leukocyte Esterase Ur Microscopic Review Urine Culture Comments Salicylates < 6.0 Urine Opiates Screen Ur Oxycodone Screen Urine Methadone Screen Ur Propoxyphene Screen Acetaminophen < 10 L Ur Barbiturates Screen Ur Tricyclics Screen Ur Phencyclidine Scrn Ur Amphetamine Screen U Methamphetamines Scrn U Benzodiazepines Scrn Urine Cocaine Screen U Cannabinoids Screen Ethyl Alcohol < 5.0 06/19/19 06/19/19 06/19/19 21:40 21:40 21:40 WBC 6.3 RBC 4.61 Hgb 13.9 Hct 41.6 MCV 90.2 MCH 30.2 MCHC 33.4 RDW 12.5 Plt Count 363 MPV 10.0 Neut # (Auto) 3.6 Lymph # (Auto) 2.2 [place] # (Auto) 0.4 Eos # (Auto) 0.1 Baso # (Auto) 0.0 Absolute Nucleated RBC 0.00 Nucleated RBC % 0.0 PT INR Sodium Potassium Chloride Carbon Dioxide Anion Gap BUN Creatinine Estimated GFR (MDRD) Glucose POC Whole Bld Glucose Calcium Total Bilirubin AST ALT Alkaline Phosphatase Total Protein Albumin Globulin Albumin/Globulin Ratio Lipase TSH 1.46 Serum HCG, Qual NEGATIVE Urine Color Urine Clarity Urine pH Ur Specific [place] Urine Protein Urine Glucose (UA) Urine Ketones Urine Occult Blood Urine Nitrite Urine Bilirubin Urine Urobilinogen Ur Leukocyte Esterase Ur Microscopic Review Urine Culture Comments Salicylates Urine Opiates Screen Ur Oxycodone Screen Urine Methadone Screen Ur Propoxyphene Screen Acetaminophen Ur Barbiturates Screen Ur Tricyclics Screen Ur Phencyclidine Scrn Ur Amphetamine Screen U Methamphetamines Scrn U Benzodiazepines Scrn Urine Cocaine Screen U Cannabinoids Screen Ethyl Alcohol 06/20/19 01:30 WBC RBC Hgb Hct MCV MCH MCHC RDW Plt Count MPV Neut # (Auto) Lymph # (Auto) [place] # (Auto) Eos # (Auto) Baso # (Auto) Absolute Nucleated RBC Nucleated RBC % PT INR Sodium Potassium Chloride Carbon Dioxide Anion Gap BUN Creatinine Estimated GFR (MDRD) Glucose POC Whole Bld Glucose Calcium Total Bilirubin AST ALT Alkaline Phosphatase Total Protein Albumin Globulin Albumin/Globulin Ratio Lipase TSH Serum HCG, Qual Urine Color YELLOW Urine Clarity CLEAR Urine pH 6.0 Ur Specific [place] 1.015 Urine Protein NEGATIVE Urine Glucose (UA) NEGATIVE Urine Ketones NEGATIVE Urine Occult Blood NEGATIVE Urine Nitrite NEGATIVE Urine Bilirubin NEGATIVE Urine Urobilinogen 0.2 (NORMAL) Ur Leukocyte Esterase NEGATIVE Ur Microscopic Review NOT INDICATED Urine Culture Comments NOT INDICATED Salicylates Urine Opiates Screen NEGATIVE Ur Oxycodone Screen NEGATIVE Urine Methadone Screen NEGATIVE Ur Propoxyphene Screen NEGATIVE Acetaminophen Ur Barbiturates Screen NEGATIVE Ur Tricyclics Screen NEGATIVE Ur Phencyclidine Scrn NEGATIVE Ur Amphetamine Screen NEGATIVE U Methamphetamines Scrn NEGATIVE U Benzodiazepines Scrn POSITIVE H Urine Cocaine Screen NEGATIVE U Cannabinoids Screen NEGATIVE Ethyl Alcohol - Rads (name of study) CT head WO Radiology: Other (No acute intracranial abnormality) PD MEDICAL DECISION MAKING - ED course Complexity details: considered differential (Migraine, tension headache, ICH, stroke, anxiety, depression, conversion disorder) ED course: Pt presents with headache, weakness/poor coordination on the left side of her body for 3 days, and sensation changes since this evening. On exam she has inconsistent weakness that resolves when she is performing tasks or with strong encouragement. No cranial nerve deficits. She is able to hold her baby, ambulate independently, and I do not see any objective neurologic deficits with careful and repeated neurologic exams. CT of the head is unremarkable, given the duration of her reported poor coordination, there would likely be findings on the CT by now if she had a stroke. Her labs are unremarkable. Pt was given anti-emetics and tylenol for her headache, followed by toradol once her head CT returned negative. This is her typical headache, it was gradual in onset, she has no objective neurologic findings, I highly doubt SAH. On repeat evaluation her headache has resolved, her sensation changes and weakness have also completely resolved. This may have been a migraine or complex migraine. In discussion with the patient and her , she has been struggling with depression and she feels her bipolar is not well controlled. She denies SI, but does not think the effexor is working. She has been unable to see a psychiatrist, but has been in touch with and they are calling her tomorrow to schedule an appointment. She is not disorganized, manic, or suicidal, and I see no indications for emergent psych consultation, but she does need close outpatient follow up. I discussed strict return precuations including SI, symptoms of marti, severe headache, new neurological symptoms. Patient and agreed and she was discharged home in his care. Departure - Departure Disposition: Home, Self Care Clinical Impression: Headache, Paresthesia Condition: Stable Follow-Up: your,pcp [Other] (Follow-up with your primary care provider and a psychiatrist as soon as possible.) Prescriptions: RX: Acetaminophen 650 mg PO Q6HR #30 tablet RX: Ibuprofen 600 mg PO Q6H PRN #30 tablet PRN Reason: Pain Comments: You were seen today for some sensation changes on your left side as well feelings of poor coordination. Your CT is normal, your labs are unrevealing. Your symptoms are improving, so you should follow-up with your primary care provider. Regarding your depression and your medication, please follow-up as soon as possible with a psychiatrist. If you have thoughts of harming herself, weakness, worsening headache, or other concerning symptoms call 911, the crisis line or return to the emergency department immediately Discharge Date/Time: 06/20/19 02:00
--- NOTE | 2019-06-19 22:03 | CT Report ---
Reason: Left sided numbness + subjective poor coordination Procedure Date: 06/19/2019 Accession Number: [id number] / [id number] Procedure: CT - HEAD WO CPT Code: FULL RESULT: EXAM: CT HEAD EXAM DATE: 06/19/2019 09:33 PM. CLINICAL HISTORY: Left sided numbness + subjective poor coordination. COMPARISON: None. TECHNIQUE: Multiaxial CT images were obtained from the foramen magnum to the vertex. Reformats: Sagittal and coronal. IV contrast: None. In accordance with CT protocol optimization, one or more of the following dose reduction techniques were utilized for this exam: automated exposure control, adjustment of mA and/or KV based on patient size, or use of iterative reconstructive technique. FINDINGS: Parenchyma: No intraparenchymal hemorrhage. No evidence of mass, midline shift, or CT findings of infarction. Herring-white differentiation is distinct. Extraaxial Spaces: Normal for age. No subdural or epidural collections identified. Ventricles: Normal in size and position. Sinuses and Orbits: Imaged paranasal sinuses, orbits, and mastoids show no significant abnormality. Bones: No evidence of fracture or calvarial defect. Other: None. IMPRESSION: Normal head CT. RADIA
[2019-06-19 22:07] LABS: INR 1.2 (0.8-1.2); PT - PROTHROMBIN TIME 13.1 secs (9.9-12.6)
[2019-06-19 22:12] LABS: ACETAMINOPHEN < 10 ug/mL (10-30); ALBUMIN 4.9 g/dL (3.2-5.5); ALBUMIN/GLOBULIN RATIO 1.7 (1.0-2.2); ALKALINE PHOSPHATASE 45 IU/L (42-121); ALT ALANINE AMINOTRANSFERASE 17 IU/L (10-60); AST ASPARTATE AMINOTRANSFERASE 16 IU/L (10-42); BILIRUBIN,TOTAL 0.2 mg/dL (0.2-1.0); BUN - BLOOD UREA NITROGEN 13 mg/dL (6-20); CALCIUM 9.4 mg/dL (8.5-10.3); CARBON DIOXIDE - CO2 26 mmol/L (21-32); CHLORIDE 103 mmol/L (101-111); CREATININE 0.7 mg/dL (0.4-1.0); GFR - MDRD 102 (>89); GLUCOSE 95 mg/dL (70-100); LIPASE 50 U/L (22-51); SALICYLATE < 6.0 mg/dL; SODIUM 139 mmol/L (135-145); TOTAL PROTEIN 7.8 g/dL (6.7-8.2)
[2019-06-19 22:25] LABS: HCG,QUALITATIVE BLOOD NEGATIVE
[2019-06-19] MEDS ORDERED: ONDANSETRON 4 MG/2 ML VIAL IVP STA (23:41)
[2019-06-20] MEDS: KETOROLAC 15 MG/ML VIAL IVP STA ×2 (00:03)
[2019-06-20 00:23] LABS: BASOPHILS % (AUTO) 0.5 %; EOSINOPHILS # (AUTO) 0.1 10^3/uL (0.0-0.7); EOSINOPHILS % (AUTO) 1.4 %; HGB - HEMOGLOBIN 13.9 g/dL (12.0-16.0); LYMPHOCYTES # (AUTO) 2.2 10^3/uL (1.5-3.5); LYMPHOCYTES % (AUTO) 34.6 %; MEAN CORPUSCULAR HEMOGLOBIN 30.2 pg (27.0-31.0); MEAN CORPUSCULAR HGB CONC 33.4 g/dL (32.0-36.0); MEAN CORPUSCULAR VOLUME 90.2 fL (81.0-99.0); MONOCYTES # (AUTO) 0.4 10^3/uL (0.0-1.0); MONOCYTES % (AUTO) 6.1 %; NEUTROPHILS # (AUTO) 3.6 10^3/uL (1.5-6.6); NEUTROPHILS % (AUTO) 57.1 %; PLT - PLATELET COUNT 363 10^3/uL (130-450); RED BLOOD COUNT 4.61 10^6/uL (4.20-5.40); RED CELL DISTRIBUTION WIDTH 12.5 % (12.0-15.0); WHITE BLOOD COUNT 6.3 x10^3/uL (4.8-10.8)
[2019-06-20] MEDS ORDERED: METOCLOPRAMIDE 10 MG/2 ML VIAL IVP STA (00:57)
[2019-06-20] MEDS ORDERED: ACETAMINOPHEN 325 MG TABLET PO STA (00:59)
[2019-06-20 01:39] LABS: MUDS CUTOFF CONCENTRATIONS CUTOFF CONC BELOW:
[2019-06-20 01:42] LABS: BILIRUBIN,URINE NEGATIVE (NEGATIVE); GLUCOSE, URINE (UA) NEGATIVE (NEGATIVE); KETONES,URINE (UA) NEGATIVE (NEGATIVE); LEUKOCYTE ESTERASE, URINE NEGATIVE (NEGATIVE); NITRITE,URINE NEGATIVE (NEGATIVE); OCCULT BLOOD,URINE NEGATIVE (NEGATIVE); PROTEIN,URINE NEGATIVE (NEGATIVE); UROBILINOGEN,URINE 0.2 (NORMAL) E.U./dL (NORMAL)
[2019-06-20 01:49] VITALS: BP 135/75
[2019-06-20 01:52] LABS: AMPHETAMINE SCREEN,URINE NEGATIVE (NEGATIVE); BENZODIAZEPINES SCREEN, URINE POSITIVE (NEGATIVE); CLARITY,URINE CLEAR (CLEAR); COCAINE SCREEN URINE NEGATIVE (NEGATIVE); METHADONE SCREEN, URINE NEGATIVE (NEGATIVE); METHAMPHETAMINES SCREEN, URINE NEGATIVE (NEGATIVE); OPIATE SCREEN, URINE NEGATIVE (NEGATIVE); OXYCODONE SCREEN, URINE NEGATIVE (NEGATIVE); PROPOXYPHENE SCREEN, URINE NEGATIVE (NEGATIVE); TRICYCLIC ANTIDEPRESSANT,URINE NEGATIVE (NEGATIVE)
== END 2019-06-20 02:00 | disposition home or self-care (01) ==
LOC: ED 20:12
DX: R51 Headache (principal); R20.2 Paresthesia of skin; R27.8 Other lack of coordination; R29.898 Other symptoms and signs involving the musculoskeletal system; F31.9 Bipolar disorder, unspecified
CPT/HCPCS: 36415; 70450; 80320; 80329; 81003; 83690; 84703; 85610; 93005; 96374; 96375; 99284; A9270; J2765; 80053; 80306; 80307; 81001; 84443; 85025; 87086

== ENCOUNTER 2019-06-26 22:31 | Emergency (ER) | payer OTHER ==
[2019-06-26 22:57] LABS: BILIRUBIN,URINE NEGATIVE (NEGATIVE); GLUCOSE, URINE (UA) NEGATIVE (NEGATIVE); KETONES,URINE (UA) TRACE mg/dL (NEGATIVE); LEUKOCYTE ESTERASE, URINE NEGATIVE (NEGATIVE); NITRITE,URINE NEGATIVE (NEGATIVE); OCCULT BLOOD,URINE NEGATIVE (NEGATIVE); PROTEIN,URINE NEGATIVE (NEGATIVE); UROBILINOGEN,URINE 0.2 (NORMAL) E.U./dL (NORMAL)
[2019-06-26 22:58] LABS: CLARITY,URINE CLEAR (CLEAR)
[2019-06-26 22:59] LABS: HCG UR QUAL NEGATIVE
--- NOTE | 2019-06-27 00:27 | ED Physician Documentation ---
History of Present Illness - Stated complaint Stated Complaint: POST OP/BACK PX/SWELL/CONFUSION - Chief complaint Chief Complaint: Neuro - History obtained from History obtained from: Patient - History of Present Illness Timing: How many weeks ago (1) Pain level now: 6 Improved by: nothing Worsened by: no exacerbating factors - Additonal information Additional information: T+R from this ED 1 week ago for AL, numbness; w/u at that time was extensive and included UA, UDS, blood tests, CTH. The results were unremarkable and did not reveal nor suggest a specific diagnosis. She returns due to chief c/o of low back, right flank, and lower abdominal pain x few days. She feels she is distended and repeatedly refers to the pain as "c- section pain" and "uterus pain". She also says she continues to feel "cognitive issues" and "fogginess" which she tells me were present when she was last evaluated in this ED. She has stopped the effexor since she was last here, as she suspected her symptoms might be due to the effexor (she had started effexor approximately 3 weeks ago). Review of Systems Constitutional: reports: Reviewed and negative Eyes: reports: Reviewed and negative Cardiac: reports: Reviewed and negative Respiratory: reports: Reviewed and negative GI: reports: Abdominal Pain, Abdominal Swelling. 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 HEENT: Tonsil/Adenoidectomy - Present Medications Home Medications: Ambulatory Orders Medication Instructions Recorded Confirmed Alprazolam [Xanax] 2 mg PO TID 06/26/19 06/26/19 Hydrocodone/Acetaminophen 1 each PO Q6HR PRN #8 tablet 06/27/19 [Hydrocodone-Acetamin 5-325 mg] - Allergies Allergies/Adverse Reactions: Allergies Allergy/AdvReac Type Severity Reaction Status Date / Time fluoxetine [From Prozac] AdvReac Mild Dizziness Verified 06/26/19 22:43 sertraline [From Zoloft] AdvReac Dizziness Verified 06/26/19 22:43 - Social History Does the pt smoke?: No Smoking Status: Never smoker Does the pt drink ETOH?: No Does the pt have substance abuse?: No - Immunizations Immunizations are current?: Yes PD ED PE NORMAL - Vitals Vital signs reviewed: Yes - General General: Alert and oriented X 3, No acute distress, Well developed/nourished - HEENT HEENT: PERRL, EOMI, Moist mucous membranes - Neck Neck: Supple, no meningeal sign - Cardiac Cardiac: RRR, No murmur - Respiratory Respiratory: No respiratory distress, Clear bilaterally - Abdomen Abdomen: Soft, Non tender - Back Back: No CVA TTP - Derm Derm: Normal color, Warm and dry - Extremities Extremities: No edema PD ED PE EXPANDED - Abdomen Abdomen: Tender to palpation, RLQ, Surgical scars ( scar without obvious abnormality such as erythema or swelling, no tenderness nor fluctuance). No: Rebound, Guarding Results - Vitals Vitals: Vital Signs - 24 hr 06/27/19 03:21 Temperature 36.4 C L Heart Rate 79 Respiratory 16 Rate Blood Pressure 118/86 H O2 Saturation 100 Oxygen O2 Source Room air - Labs Labs: Laboratory Tests 06/26/19 06/27/19 06/27/19 20:42 01:00 01:00 WBC 9.4 RBC 4.43 Hgb 12.9 Hct 39.6 MCV 89.4 MCH 29.1 MCHC 32.6 RDW 12.7 Plt Count 340 MPV 9.4 Neut # (Auto) 5.4 Lymph # (Auto) 3.1 [place] # (Auto) 0.7 Eos # (Auto) 0.1 Baso # (Auto) 0.1 Absolute Nucleated RBC 0.00 Nucleated RBC % 0.0 Sodium 140 Potassium 3.5 Chloride 104 Carbon Dioxide 28 Anion Gap 8.0 BUN 16 Creatinine 1.0 Estimated GFR (MDRD) 68 L Glucose 97 Calcium 9.6 Total Bilirubin 0.4 AST 15 ALT 14 Alkaline Phosphatase 45 Total Protein 7.7 Albumin 4.8 Globulin 2.9 Albumin/Globulin Ratio 1.7 Lipase 41 Urine Color YELLOW Urine Clarity CLEAR Urine pH 6.0 Ur Specific [place] 1.025 Urine Protein NEGATIVE Urine Glucose (UA) NEGATIVE Urine Ketones TRACE Urine Occult Blood NEGATIVE Urine Nitrite NEGATIVE Urine Bilirubin NEGATIVE Urine Urobilinogen 0.2 (NORMAL) Ur Leukocyte Esterase NEGATIVE Ur Microscopic Review NOT INDICATED Urine Culture Comments NOT INDICATED Urine HCG, Qual NEGATIVE - Rads (name of study) CT A/P Radiology: Prelim report reviewed, See rad report PD MEDICAL DECISION MAKING - ED course Complexity details: reviewed old records, reviewed results, re-evaluated patient, considered differential, d/w patient Departure - Departure Disposition: 01 Home, Self Care Clinical Impression: Abdominal pain Qualifiers: Abdominal location: right lower quadrant Qualified Code(s): R10.31 - Right lower quadrant pain Condition: Good Instructions: ED Abdominal Pain Unkn Cause Follow-Up: ISABELA BELLE MD [Primary Care Provider] - Within 3 Days Prescriptions: Hydrocodone/Acetaminophen [Hydrocodone-Acetamin 5-325 mg] 1 each PO Q6HR PRN #8 tablet PRN Reason: Pain Discharge Date/Time: 06/27/19 03:23
[2019-06-27 01:09] LABS: BASOPHILS # (AUTO) 0.1 10^3/uL (0.0-0.1); BASOPHILS % (AUTO) 0.5 %; EOSINOPHILS # (AUTO) 0.1 10^3/uL (0.0-0.7); EOSINOPHILS % (AUTO) 1.4 %; HGB - HEMOGLOBIN 12.9 g/dL (12.0-16.0); LYMPHOCYTES # (AUTO) 3.1 10^3/uL (1.5-3.5); LYMPHOCYTES % (AUTO) 33.2 %; MEAN CORPUSCULAR HEMOGLOBIN 29.1 pg (27.0-31.0); MEAN CORPUSCULAR HGB CONC 32.6 g/dL (32.0-36.0); MEAN CORPUSCULAR VOLUME 89.4 fL (81.0-99.0); MEAN PLATELET VOLUME 9.4 fL (7.9-10.8); MONOCYTES # (AUTO) 0.7 10^3/uL (0.0-1.0); MONOCYTES % (AUTO) 7.7 %; NEUTROPHILS # (AUTO) 5.4 10^3/uL (1.5-6.6); PLT - PLATELET COUNT 340 10^3/uL (130-450); RED BLOOD COUNT 4.43 10^6/uL (4.20-5.40); RED CELL DISTRIBUTION WIDTH 12.7 % (12.0-15.0); WHITE BLOOD COUNT 9.4 x10^3/uL (4.8-10.8)
[2019-06-27 01:19] LABS: ALBUMIN 4.8 g/dL (3.2-5.5); ALBUMIN/GLOBULIN RATIO 1.7 (1.0-2.2); BILIRUBIN,TOTAL 0.4 mg/dL (0.2-1.0); CALCIUM 9.6 mg/dL (8.5-10.3); TOTAL PROTEIN 7.7 g/dL (6.7-8.2)
[2019-06-27] MEDS ORDERED: IOVERSOL 320 100 ML VIAL IVP ONE ×2 (01:33→01:55)
--- NOTE | 2019-06-27 02:46 | CT Report ---
Reason: RLQ pain, tenderness Procedure Date: 06/27/2019 Accession Number: [id number] / [id number] Procedure: CT - Abdomen/Pelvis W CPT Code: FULL RESULT: EXAM: CT ABDOMEN AND PELVIS EXAM DATE: 06/27/2019 01:40 AM. CLINICAL HISTORY: RLQ pain, tenderness. Nausea. COMPARISONS: ABDOMEN/PELVIS W/ 08/05/2017 8:15 PM. TECHNIQUE: Routine helical CT imaging was performed through the abdomen and pelvis. IV contrast: 100 ML OPTIRAY 320. Enteric contrast: No. Reconstructions: Coronal and sagittal. In accordance with CT protocol optimization, one or more of the following dose reduction techniques were utilized for this exam: automated exposure control, adjustment of mA and/or KV based on patient size, or use of iterative reconstructive technique. FINDINGS: Lung Bases: Unremarkable. Liver: No focal abnormality seen. Gallbladder/Bile Ducts: Unremarkable. Spleen: Normal. Pancreas: Normal. Adrenal Glands: Normal. Kidneys: Normal. No masses or hydronephrosis. Peritoneal Cavity/Bowel: No bowel obstruction seen. No free air or free fluid. Moderate stool in the colon. No diverticulitis. No lymphadenopathy. Appendix appears normal. Pelvic Organs: Normal. The bladder and visualized pelvic organs are within normal limits. Vasculature: No aneurysms or other significant abnormality. Bones: No significant abnormality. Other: section scar is unremarkable. IMPRESSION: 1. Appendix appears normal. No acute inflammatory or obstructive process seen in the abdomen or pelvis. 2. Moderate stool in the colon, right greater than left. RADIA
[2019-06-27] MEDS ORDERED: HYDROcod/ACETAM 5/325 MG TABLET PO STA (03:11)
[2019-06-27 03:25] VITALS: BP 118/86
== END 2019-06-27 03:23 | disposition home or self-care (01) ==
LOC: ED 22:31
DX: R10.31 Right lower quadrant pain (principal)
CPT/HCPCS: 36415; 74177; 80053; 81003; 81025; 83690; 85025; 99284; A9270; Q9967; 81001; 87086

== ENCOUNTER 2019-07-25 13:30 | Emergency (ER) | payer OTHER ==
[2019-07-25 14:47] LABS: BASOPHILS % (AUTO) 0.5 %; EOSINOPHILS # (AUTO) 0.1 10^3/uL (0.0-0.7); EOSINOPHILS % (AUTO) 1.1 %; HGB - HEMOGLOBIN 13.6 g/dL (12.0-16.0); LYMPHOCYTES # (AUTO) 1.6 10^3/uL (1.5-3.5); LYMPHOCYTES % (AUTO) 24.6 %; MEAN CORPUSCULAR HEMOGLOBIN 29.7 pg (27.0-31.0); MEAN CORPUSCULAR HGB CONC 33.5 g/dL (32.0-36.0); MEAN CORPUSCULAR VOLUME 88.6 fL (81.0-99.0); MONOCYTES # (AUTO) 0.6 10^3/uL (0.0-1.0); MONOCYTES % (AUTO) 8.4 %; NEUTROPHILS # (AUTO) 4.3 10^3/uL (1.5-6.6); NEUTROPHILS % (AUTO) 65.1 %; PLT - PLATELET COUNT 343 10^3/uL (130-450); RED BLOOD COUNT 4.58 10^6/uL (4.20-5.40); RED CELL DISTRIBUTION WIDTH 12.3 % (12.0-15.0); WHITE BLOOD COUNT 6.5 x10^3/uL (4.8-10.8)
[2019-07-25 14:49] LABS: BILIRUBIN,URINE NEGATIVE (NEGATIVE); GLUCOSE, URINE (UA) NEGATIVE (NEGATIVE); KETONES,URINE (UA) NEGATIVE (NEGATIVE); LEUKOCYTE ESTERASE, URINE NEGATIVE (NEGATIVE); NITRITE,URINE NEGATIVE (NEGATIVE); OCCULT BLOOD,URINE NEGATIVE (NEGATIVE); PROTEIN,URINE NEGATIVE (NEGATIVE); UROBILINOGEN,URINE 0.2 (NORMAL) E.U./dL (NORMAL)
[2019-07-25 14:51] LABS: CLARITY,URINE CLEAR (CLEAR); HCG UR QUAL NEGATIVE
[2019-07-25 15:04] LABS: ALBUMIN 4.6 g/dL (3.2-5.5); ALBUMIN/GLOBULIN RATIO 1.4 (1.0-2.2); BILIRUBIN,TOTAL 0.6 mg/dL (0.2-1.0); CREATININE 0.7 mg/dL (0.4-1.0); TOTAL PROTEIN 7.8 g/dL (6.7-8.2)
[2019-07-25 15:29] LABS: LITHIUM 0.17 mmol/L
[2019-07-25] MEDS ORDERED: KETOROLAC 30 MG/ML VIAL IVP STA (15:38)
[2019-07-25] MEDS ORDERED: ONDANSETRON 4 MG/2 ML VIAL IVP STA (15:38)
[2019-07-25] MEDS ORDERED: DICYCLOMINE 10 MG CAPSULE PO STA (15:38)
[2019-07-25] MEDS ORDERED: SODIUM CHLORIDE 0.9% 1,000 ML IV ONE (15:38)
--- NOTE | 2019-07-25 15:44 | ED Physician Documentation ---
PD HPI ABD PAIN - Stated complaint Stated Complaint: N/V/D DIZZY - Chief complaint Chief Complaint: Abd Pain - History obtained from History obtained from: Patient - History of Present Illness Timing - onset: Other (For last 3 days she had a gradual onset global headache which is behind the eyes. She has a history of migraines. She is been nauseous. Over the last day though she is also had diarrhea and left-sided abdominal cramping. No fevers or chills. No sick contacts, recent travel, or antibiotic use. 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: Tonsil/Adenoidectomy - Present Medications Home Medications: Ambulatory Orders Medication Instructions Recorded Confirmed Alprazolam [Xanax] 2 mg PO TID 06/26/19 06/26/19 Hydrocodone/Acetaminophen 1 each PO Q6HR PRN #8 tablet 06/27/19 [Hydrocodone-Acetamin 5-325 mg] Butalb/Acetaminophen/Caffeine 1 each PO Q4H PRN #15 capsule 07/25/19 [Fioricet 50-300-40 mg Capsule] Loperamide [Imodium] 2 mg PO QID PRN #10 capsule 07/25/19 Metoclopramide [Reglan] 10 mg PO Q6H PRN #20 tablet 07/25/19 SUMAtriptan [Imitrex] 25 mg PO BID PRN #10 tablet 07/25/19 - Allergies Allergies/Adverse Reactions: Allergies Allergy/AdvReac Type Severity Reaction Status Date / Time fluoxetine [From Prozac] AdvReac Mild Dizziness Verified 07/25/19 13:32 sertraline [From Zoloft] AdvReac Dizziness Verified 07/25/19 13:32 - Social History Does the pt smoke?: No Smoking Status: Never smoker Does the pt drink ETOH?: No Does the pt have substance abuse?: No - Immunizations Immunizations are current?: Yes PD ED PE NORMAL - Vitals Vital signs reviewed: Yes - General General: Alert and oriented X 3, No acute distress - HEENT HEENT: PERRL, EOMI - Neck Neck: Supple, no meningeal sign, No bony TTP - Cardiac Cardiac: RRR, No murmur - Respiratory Respiratory: No respiratory distress, Clear bilaterally - Abdomen Abdomen: Other (Very mild left-sided abdominal tenderness without surgical signs) - Back Back: No CVA TTP, No spinal TTP - Derm Derm: Normal color, Warm and dry - Neuro Neuro: Alert and oriented X 3, Normal speech Results - Vitals Vitals: Vital Signs - 24 hr 07/25/19 07/25/19 07/25/19 13:32 15:58 16:38 Temperature 36.5 C Heart Rate 101 H 76 79 Respiratory 16 18 18 Rate Blood Pressure 133/83 H 115/64 103/61 O2 Saturation 99 97 100 Oxygen O2 Source Room air - EKG (time done) 1422 Rate: Rate (enter#) (87) Rhythm: NSR Solo: Normal Intervals: Normal [place] QRS: Normal Ischemia: Normal ST segments Computer interpretation: Agree with computer - Labs Labs: Laboratory Tests 07/25/19 07/25/19 07/25/19 14:40 14:40 14:40 WBC 6.5 RBC 4.58 Hgb 13.6 Hct 40.6 MCV 88.6 MCH 29.7 MCHC 33.5 RDW 12.3 Plt Count 343 MPV 9.0 Neut # (Auto) 4.3 Lymph # (Auto) 1.6 [place] # (Auto) 0.6 Eos # (Auto) 0.1 Baso # (Auto) 0.0 Absolute Nucleated RBC 0.00 Nucleated RBC % 0.0 Sodium 141 Potassium 4.2 Chloride 104 Carbon Dioxide 30 Anion Gap 7.0 BUN 10 Creatinine 0.7 Estimated GFR (MDRD) 102 Glucose 96 Calcium 10.0 Total Bilirubin 0.6 AST 15 ALT 13 Alkaline Phosphatase 40 L Total Protein 7.8 Albumin 4.6 Globulin 3.2 Albumin/Globulin Ratio 1.4 Lipase 35 Urine Color Urine Clarity Urine pH Ur Specific [place] Urine Protein Urine Glucose (UA) Urine Ketones Urine Occult Blood Urine Nitrite Urine Bilirubin Urine Urobilinogen Ur Leukocyte Esterase Ur Microscopic Review Urine Culture Comments Urine HCG, Qual Last Dose Date Not Reportable Last Dose Time Not Reportable [place] 0.17 07/25/19 Unknown WBC RBC Hgb Hct MCV MCH MCHC RDW Plt Count MPV Neut # (Auto) Lymph # (Auto) [place] # (Auto) Eos # (Auto) Baso # (Auto) Absolute Nucleated RBC Nucleated RBC % Sodium Potassium Chloride Carbon Dioxide Anion Gap BUN Creatinine Estimated GFR (MDRD) Glucose Calcium Total Bilirubin AST ALT Alkaline Phosphatase Total Protein Albumin Globulin Albumin/Globulin Ratio Lipase Urine Color YELLOW Urine Clarity CLEAR Urine pH 7.0 Ur Specific [place] <=1.005 Urine Protein NEGATIVE Urine Glucose (UA) NEGATIVE Urine Ketones NEGATIVE Urine Occult Blood NEGATIVE Urine Nitrite NEGATIVE Urine Bilirubin NEGATIVE Urine Urobilinogen 0.2 (NORMAL) Ur Leukocyte Esterase NEGATIVE Ur Microscopic Review NOT INDICATED Urine Culture Comments NOT INDICATED Urine HCG, Qual NEGATIVE Last Dose Date Last Dose Time [place] PD MEDICAL DECISION MAKING - ED course ED course: Young lady presents with a headache, no red flags for serious etiology such as meningitis or subarachnoid hemorrhage. Its associated with some viral syndrome with vomiting and diarrhea as well, again without risk factors for bacterial etiology. She initially was not feeling much better here after Toradol, Zofran. However she was driving so she eschewed further medications in preference of prescription she could take at home. Departure - Departure Disposition: 01 Home, Self Care Clinical Impression: Headache Qualifiers: Headache type: unspecified Headache chronicity pattern: acute headache Vomiting Qualifiers: Vomiting type: unspecified Vomiting Intractability: non-intractable Nausea presence: with nausea Qualified Code(s): R11.2 - Nausea with vomiting, unspecified Diarrhea Qualifiers: Diarrhea type: presumed infectious Qualified Code(s): R19.7 - Diarrhea, unspecified Condition: Good Record reviewed to determine appropriate education?: Yes Instructions: ED Diarrhea Viral, ED Headache Migraine Prescriptions: Butalb/Acetaminophen/Caffeine [Fioricet 50-300-40 mg Capsule] 1 each PO Q4H PRN #15 capsule PRN Reason: Headache Loperamide [Imodium] 2 mg PO QID PRN #10 capsule PRN Reason: Diarrhea Metoclopramide [Reglan] 10 mg PO Q6H PRN #20 tablet PRN Reason: nausea or headache SUMAtriptan [Imitrex] 25 mg PO BID PRN #10 tablet PRN Reason: Headache Comments: Return for new or worsening symptoms, especially fever, or if you cannot keep anything down. Do not drink or drive while taking the Reglan or Fioricet. Follow-up with your doctor, next available appointment. Discharge Date/Time: 07/25/19 16:46
[2019-07-25 16:38] VITALS: BP 103/61
== END 2019-07-25 16:46 | disposition home or self-care (01) ==
LOC: ED 13:30
DX: R51 Headache (principal); R11.2 Nausea with vomiting, unspecified; R19.7 Diarrhea, unspecified; R10.9 Unspecified abdominal pain
CPT/HCPCS: 36415; 80053; 80178; 81003; 81025; 83690; 85025; 93005; 96361; 96374; 99283; 99284; A9270; 81001; 87086

== ENCOUNTER 2019-11-02 13:35 | Emergency (ER) | payer OTHER ==
--- NOTE | 2019-11-02 14:00 | ED Physician Documentation ---
History of Present Illness - Stated complaint Stated Complaint: FEMALE - Chief complaint Chief Complaint: Abd Pain - Additonal information Additional information: This is a 24-year-old female with a history of bipolar disorder who presents with Rectal bleeding. Patient states that she had an episode of vomiting last night, and she also had episode of loose stool. Then this morning she had a bowel movement which had jose manuel blood. She later felt that she had some trickling down her leg and noticed that she had blood in her underwear, and had a second bowel movement with more jose manuel red blood in her stool. She had cramping abdominal pain that is worse in the right lower quadrant. She denies fever, travel, new foods, or any personal or family history of inflammatory bowel disease. Review of Systems Constitutional: denies: Fever Throat: denies: Oral lesions / sores Cardiac: denies: Chest pain / pressure Respiratory: denies: Dyspnea GI: reports: Abdominal Pain, Vomiting, Bloody / black stool : denies: Dysuria Skin: denies: Rash Neurologic: denies: Generalized weakness Immunocompromised: denies: Immunocompromised PD PAST MEDICAL HISTORY - Past Medical History Cardiovascular: None Respiratory: None Neuro: None Endocrine/Autoimmune: None GI: None, Other : None Psych: Depression, Anxiety, Bipolar disorder, Panic attacks Musculoskeletal: None Derm: None - Past Surgical History 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: 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/Adenoidectomy - Present Medications Home Medications: Ambulatory Orders Medication Instructions Recorded Confirmed Alprazolam [Xanax] 2 mg PO TID 06/26/19 06/26/19 Hydrocodone/Acetaminophen 1 each PO Q6HR PRN #8 tablet 06/27/19 [Hydrocodone-Acetamin 5-325 mg] Butalb/Acetaminophen/Caffeine 1 each PO Q4H PRN #15 capsule 07/25/19 [Fioricet 50-300-40 mg Capsule] Loperamide [Imodium] 2 mg PO QID PRN #10 capsule 07/25/19 Metoclopramide [Reglan] 10 mg PO Q6H PRN #20 tablet 07/25/19 SUMAtriptan [Imitrex] 25 mg PO BID PRN #10 tablet 07/25/19 Amox/Clav 875/125 [Augmentin] 1 each PO Q12H #14 tablet 11/02/19 Ondansetron Odt [Zofran] 4 mg TL Q6H PRN #10 tablet 11/02/19 Oxycodone HCl/Acetaminophen 1 - 2 each PO Q6H PRN #6 tablet 11/02/19 [Percocet 5-325 mg Tablet] - Allergies Allergies/Adverse Reactions: Allergies Allergy/AdvReac Type Severity Reaction Status Date / Time fluoxetine [From Prozac] AdvReac Mild Dizziness Verified 11/02/19 13:43 sertraline [From Zoloft] AdvReac Dizziness Verified 11/02/19 13:43 - Social History Does the pt smoke?: No Smoking Status: Never smoker Does the pt drink ETOH?: No Does the pt have substance abuse?: No - Immunizations Immunizations are current?: Yes PD ED PE NORMAL - Vitals Vital signs reviewed: Yes - General General: Alert and oriented X 3, No acute distress - HEENT HEENT: Atraumatic - Neck Neck: Supple, no meningeal sign - Cardiac Cardiac: RRR - Respiratory Respiratory: No respiratory distress, Clear bilaterally - Abdomen Abdomen: Soft, Non distended, Other (Tenderness to palpation in the right lower quadrant withotu guarding. Left lower quadrant tenderness is also present but very mild.) - Rectal Rectal: Other (External feroz-anal area is normal in appearnce, no hemorrhoids.) - Derm Derm: Warm and dry - Extremities Extremities: No deformity - Neuro Neuro: Alert and oriented X 3 - Psych Psych: Normal mood, Normal affect Results - Vitals Vitals: Oxygen O2 Source Room air - Labs Labs: Microbiology 11/02/19 15:16 Campylobacter Antigen Assay - Final Stool Stool Culture - Final Laboratory Tests 11/02/19 11/02/19 11/02/19 13:55 13:55 14:10 WBC 8.2 RBC 4.85 Hgb 13.8 Hct 43.1 MCV 88.9 MCH 28.5 MCHC 32.0 RDW 13.9 Plt Count 332 MPV 9.3 Neut # (Auto) 6.1 Lymph # (Auto) 1.3 L [place] # (Auto) 0.5 Eos # (Auto) 0.2 Baso # (Auto) 0.0 Absolute Nucleated RBC 0.00 Nucleated RBC % 0.0 Sodium 141 Potassium 3.9 Chloride 105 Carbon Dioxide 29 Anion Gap 7.0 BUN 11 Creatinine 0.7 Estimated GFR (MDRD) 102 Glucose 113 H Calcium 9.4 Total Bilirubin 0.9 AST 15 ALT 12 Alkaline Phosphatase 54 Total Protein 7.3 Albumin 4.3 Globulin 3.0 Albumin/Globulin Ratio 1.4 Lipase 42 Urine Color YELLOW Urine Clarity CLEAR Urine pH 6.5 Ur Specific [place] 1.020 Urine Protein NEGATIVE Urine Glucose (UA) NEGATIVE Urine Ketones NEGATIVE Urine Occult Blood TRACE-INTA Urine Nitrite NEGATIVE Urine Bilirubin NEGATIVE Urine Urobilinogen 0.2 (NORMAL) Ur Leukocyte Esterase NEGATIVE Ur Microscopic Review NOT INDICATED Urine Culture Comments NOT INDICATED Urine HCG, Qual NEGATIVE - Rads (name of study) CT abd/pelvis W Radiology: Other (Ascending colitis without abscess or perforation) PD MEDICAL DECISION MAKING - ED course Complexity details: considered differential (hemorrhoids, colitis, IBD, diverticulosis, mass, ulcer, GI bleed) ED course: Pt is well appearing with unremarkable vital signs, no fever, a benign abdomen with only mild tenderness. Labs are unremarkable. She does have a bowel movement while in the ED and passess one small clot. After discussion with the pt we elected to obtain a CT that showed ascending colitis. She has no hx of inflammatory bowel disease, no recent travel or sick exposures, and no fever. I discussed the possible causes of colitis, and elected to treat pt with augmentin for infectious cause but explained the need for close PCP follow up and return to the ED with any worsening or heavy bleeding. Stool culture was sent. Pt continues to be well appearing and her exam is benign, she was discharged home in good condition. I did prescribe a small amount of nausea and pain medications with instructions on their use. Departure - Departure Disposition: 01 Home, Self Care Clinical Impression: Colitis Condition: Good Follow-Up: ISABELA BELLE MD [Primary Care Provider] - Within 1 week (Call for next available appt) Prescriptions: Amox/Clav 875/125 [Augmentin] 1 each PO Q12H #14 tablet Ondansetron Odt [Zofran] 4 mg TL Q6H PRN #10 tablet PRN Reason: Nausea / Vomiting Oxycodone HCl/Acetaminophen [Percocet 5-325 mg Tablet] 1 - 2 each PO Q6H PRN #6 tablet PRN Reason: pain Comments: You were seen today for bloody stool. Your labs are reassuring, your CT scan does show colitis (inflammation around the large intestine). It is unclear if this is due to an infection or another problem such as an autoimmune disease. We will treat you as if this is an infection with the antibiotic Augmentin, please take the entire course prescribed. We are culturing your stool and you will be called if the antibiotic needs to be changed. Please follow-up with your primary care provider as soon as possible, if you are having any persistent or recurrent symptoms you will need more testing to check for other causes of colitis such as ulcerative colitis or Crohn's disease. If you are having worsening symptoms such as increasing abdominal pain which is not controlled with the medications prescribed, persistent bleeding, or persistent vomiting, return to the emergency department. Do not drink alcohol or drive while taking narcotic pain medication. Note that many narcotic pain relievers also contain Tylenol/acetaminophen. Please ensure that your total dose of acetaminophen from all sources does not exceed 3 g (3000 mg) per day. You may get constipated while on this medication. Take a stool softener such as Colace twice a day while you are on it unless you are having diarrhea. Also add an [id number] laxative such as senna or MiraLAX on any day that you do not have a bowel movement. If you received a narcotic pain medication or sedative while in the emergency department, do not drive for the next 24 hours. Discharge Date/Time: 11/02/19 18:12
[2019-11-02 14:03] LABS: BASOPHILS % (AUTO) 0.4 %; EOSINOPHILS # (AUTO) 0.2 10^3/uL (0.0-0.7); EOSINOPHILS % (AUTO) 1.8 %; HGB - HEMOGLOBIN 13.8 g/dL (12.0-16.0); LYMPHOCYTES # (AUTO) 1.3 10^3/uL (1.5-3.5); LYMPHOCYTES % (AUTO) 16.3 %; MEAN CORPUSCULAR HEMOGLOBIN 28.5 pg (27.0-31.0); MEAN CORPUSCULAR VOLUME 88.9 fL (81.0-99.0); MEAN PLATELET VOLUME 9.3 fL (7.9-10.8); MONOCYTES # (AUTO) 0.5 10^3/uL (0.0-1.0); MONOCYTES % (AUTO) 5.9 %; NEUTROPHILS # (AUTO) 6.1 10^3/uL (1.5-6.6); NEUTROPHILS % (AUTO) 75.2 %; PLT - PLATELET COUNT 332 10^3/uL (130-450); RED BLOOD COUNT 4.85 10^6/uL (4.20-5.40); RED CELL DISTRIBUTION WIDTH 13.9 % (12.0-15.0); WHITE BLOOD COUNT 8.2 x10^3/uL (4.8-10.8)
[2019-11-02 14:14] LABS: ALBUMIN 4.3 g/dL (3.2-5.5); ALBUMIN/GLOBULIN RATIO 1.4 (1.0-2.2); BILIRUBIN,TOTAL 0.9 mg/dL (0.2-1.0); CALCIUM 9.4 mg/dL (8.5-10.3); CREATININE 0.7 mg/dL (0.4-1.0); TOTAL PROTEIN 7.3 g/dL (6.7-8.2)
[2019-11-02 14:25] LABS: BILIRUBIN,URINE NEGATIVE (NEGATIVE); CLARITY,URINE CLEAR (CLEAR); GLUCOSE, URINE (UA) NEGATIVE (NEGATIVE); HCG UR QUAL NEGATIVE; KETONES,URINE (UA) NEGATIVE (NEGATIVE); LEUKOCYTE ESTERASE, URINE NEGATIVE (NEGATIVE); NITRITE,URINE NEGATIVE (NEGATIVE); OCCULT BLOOD,URINE TRACE-INTA (NEGATIVE); PH,URINE 6.5 PH (5.0-7.5); PROTEIN,URINE NEGATIVE (NEGATIVE); UROBILINOGEN,URINE 0.2 (NORMAL) E.U./dL (NORMAL)
[2019-11-02] MEDS ORDERED: ONDANSETRON 4 MG/2 ML VIAL IVP STA (15:56)
[2019-11-02] MEDS ORDERED: MORPHINE 2 MG/ML CARPUJECT IVP STA (15:56)
[2019-11-02] MEDS ORDERED: IOVERSOL 320 100 ML VIAL IVP ONE ×2 (16:17→16:42)
--- NOTE | 2019-11-02 17:09 | CT Report ---
Reason: Rectal bleeding, RLQ pain Procedure Date: 11/02/2019 Accession Number: [id number] / [id number] Procedure: CT - Abdomen/Pelvis W CPT Code: Final Report FULL RESULT: EXAM: CT ABDOMEN AND PELVIS EXAM DATE: 11/02/2019 04:41 PM. CLINICAL HISTORY: Rectal bleeding. Right lower quadrant pain. COMPARISONS: ABDOMEN/PELVIS W/ 06/27/2019 1:40 AM. TECHNIQUE: Routine helical CT imaging was performed through the abdomen and pelvis. IV contrast: Optiray 320 90 mL. Enteric contrast: No. Reconstructions: Coronal and sagittal. In accordance with CT protocol optimization, one or more of the following dose reduction techniques were utilized for this exam: automated exposure control, adjustment of mA and/or KV based on patient size, or use of iterative reconstructive technique. FINDINGS: Lung bases: Bilateral breast implants. No acute findings. Liver: Unremarkable. Gallbladder: Unremarkable. Bile ducts: Unremarkable. Spleen: Unremarkable. Adrenals: Unremarkable Kidneys: Unremarkable. Bowel: Normal appendix. No dilated bowel loops are seen. The descending colon and sigmoid colon are decompressed which limits evaluation. There appears to be diffuse descending colon colonic wall thickening with mild adjacent stranding concerning for acute colitis. No evidence for perforation or abscess. No free fluid or free air. The rectum is decompressed and appears unremarkable. No perianal or perirectal abscess. Pelvis: The bladder and remaining pelvic organs appear unremarkable. Vasculature: No acute findings. Bones: No acute bone findings. IMPRESSION: There appears to be diffuse acute colitis in the descending colon. See above. RADIA
[2019-11-02] MEDS ORDERED: AMOX/CLAV 875 MG/125 MG TABLET PO STA (17:52)
[2019-11-02 17:53] VITALS: BP 128/84
== END 2019-11-02 18:12 | disposition home or self-care (01) ==
LOC: ED 13:35
DX: K52.9 Noninfective gastroenteritis and colitis, unspecified (principal); K92.1 Melena
CPT/HCPCS: 36415; 74177; 80053; 81003; 81025; 83690; 85025; 87045; 87046; 96374; 99284; A9270; Q9967; 81001; 87086

== ENCOUNTER 2019-12-21 16:52 | Emergency (ER) | payer OTHER ==
[2019-12-21 17:27] LABS: BILIRUBIN,URINE NEGATIVE (NEGATIVE); GLUCOSE, URINE (UA) NEGATIVE (NEGATIVE); KETONES,URINE (UA) NEGATIVE (NEGATIVE); LEUKOCYTE ESTERASE, URINE NEGATIVE (NEGATIVE); NITRITE,URINE NEGATIVE (NEGATIVE); OCCULT BLOOD,URINE NEGATIVE (NEGATIVE); PH,URINE 6.5 PH (5.0-7.5); PROTEIN,URINE NEGATIVE (NEGATIVE); UROBILINOGEN,URINE 0.2 (NORMAL) E.U./dL (NORMAL)
[2019-12-21 17:30] LABS: CLARITY,URINE CLEAR (CLEAR); HCG UR QUAL NEGATIVE
[2019-12-21 17:56] LABS: BASOPHILS # (AUTO) 0.1 10^3/uL (0.0-0.1); BASOPHILS % (AUTO) 0.8 %; EOSINOPHILS # (AUTO) 0.2 10^3/uL (0.0-0.7); EOSINOPHILS % (AUTO) 2.7 %; HGB - HEMOGLOBIN 13.7 g/dL (12.0-16.0); LYMPHOCYTES % (AUTO) 27.9 %; MEAN CORPUSCULAR HEMOGLOBIN 30.2 pg (27.0-31.0); MEAN CORPUSCULAR HGB CONC 32.8 g/dL (32.0-36.0); MEAN CORPUSCULAR VOLUME 92.1 fL (81.0-99.0); MEAN PLATELET VOLUME 9.5 fL (7.9-10.8); MONOCYTES # (AUTO) 0.5 10^3/uL (0.0-1.0); MONOCYTES % (AUTO) 7.1 %; NEUTROPHILS # (AUTO) 4.4 10^3/uL (1.5-6.6); NEUTROPHILS % (AUTO) 61.1 %; PLT - PLATELET COUNT 347 10^3/uL (130-450); RED BLOOD COUNT 4.54 10^6/uL (4.20-5.40); WHITE BLOOD COUNT 7.1 x10^3/uL (4.8-10.8)
[2019-12-21 18:09] LABS: ALBUMIN 4.8 g/dL (3.2-5.5); ALBUMIN/GLOBULIN RATIO 1.5 (1.0-2.2); BILIRUBIN,TOTAL 0.7 mg/dL (0.2-1.0); CALCIUM 9.4 mg/dL (8.5-10.3); CREATININE 0.8 mg/dL (0.4-1.0); TOTAL PROTEIN 8.1 g/dL (6.7-8.2)
--- NOTE | 2019-12-21 19:28 | ED Physician Documentation ---
PD HPI ABD PAIN - Stated complaint Stated Complaint: LOWER ABD PX - Chief complaint Chief Complaint: Abd Pain - History obtained from History obtained from: Patient - History of Present Illness Timing - onset: How many days ago (3-4) Timing - details: Gradual onset, Waxing and waning Pain level now: 7 Quality: Pain Location: Other (across lower abdomen, R>L) Improved by: Other (no ameliorating factors) Worsened by: Other (no exacerbating factors) Associated symptoms: Nausea, Vomiting. No: Fever Similar symptoms before: Other (some similarity to previous ruptured ovarian cysts) Recently seen: Not recently seen Review of Systems Constitutional: denies: Fever, Chills, Sweats Cardiac: denies: Reviewed and negative Respiratory: reports: Reviewed and negative GI: reports: Abdominal Pain, Nausea, Vomiting. 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 HEENT: Tonsil/Adenoidectomy - Present Medications Home Medications: Ambulatory Orders Medication Instructions Recorded Confirmed Alprazolam [Xanax] 2 mg PO TID 06/26/19 06/26/19 Hydrocodone/Acetaminophen 1 each PO Q6HR PRN #8 tablet 06/27/19 [Hydrocodone-Acetamin 5-325 mg] Butalb/Acetaminophen/Caffeine 1 each PO Q4H PRN #15 capsule 07/25/19 [Fioricet 50-300-40 mg Capsule] Loperamide [Imodium] 2 mg PO QID PRN #10 capsule 07/25/19 Metoclopramide [Reglan] 10 mg PO Q6H PRN #20 tablet 07/25/19 SUMAtriptan [Imitrex] 25 mg PO BID PRN #10 tablet 07/25/19 Amox/Clav 875/125 [Augmentin] 1 each PO Q12H #14 tablet 11/02/19 Ondansetron Odt [Zofran] 4 mg TL Q6H PRN #10 tablet 11/02/19 Oxycodone HCl/Acetaminophen 1 - 2 each PO Q6H PRN #6 tablet 11/02/19 [Percocet 5-325 mg Tablet] Ondansetron Odt [Zofran] 4 mg TL Q6H PRN #10 tablet 12/21/19 - Allergies Allergies/Adverse Reactions: Allergies Allergy/AdvReac Type Severity Reaction Status Date / Time fluoxetine [From Prozac] AdvReac Mild Dizziness Verified 11/02/19 13:43 sertraline [From Zoloft] AdvReac Dizziness Verified 11/02/19 13:43 - Social History Does the pt smoke?: No Smoking Status: Never smoker Does the pt drink ETOH?: No Does the pt have substance abuse?: No - Immunizations Immunizations are current?: Yes - POLST Patient has POLST: No PD ED PE NORMAL - Vitals Vital signs reviewed: Yes - General General: Alert and oriented X 3, No acute distress, Well developed/nourished - HEENT HEENT: Moist mucous membranes - Neck Neck: Supple, no meningeal sign - Cardiac Cardiac: RRR, No murmur - Respiratory Respiratory: No respiratory distress, Clear bilaterally - Abdomen Abdomen: Soft, Non distended, Other (TTP across lower abdomen, most pronounced in RLQ) - Back Back: No CVA TTP - Derm Derm: Normal color, Warm and dry Results - Vitals Vitals: Oxygen O2 Source Room air - Labs Labs: Laboratory Tests 12/21/19 12/21/19 12/21/19 17:18 17:50 17:50 WBC 7.1 RBC 4.54 Hgb 13.7 Hct 41.8 MCV 92.1 MCH 30.2 MCHC 32.8 RDW 14.0 Plt Count 347 MPV 9.5 Neut # (Auto) 4.4 Lymph # (Auto) 2.0 [place] # (Auto) 0.5 Eos # (Auto) 0.2 Baso # (Auto) 0.1 Absolute Nucleated RBC 0.00 Nucleated RBC % 0.0 Sodium 135 Potassium 4.2 Chloride 101 Carbon Dioxide 26 Anion Gap 8.0 BUN 10 Creatinine 0.8 Estimated GFR (MDRD) 87 L Glucose 91 Calcium 9.4 Total Bilirubin 0.7 AST 16 ALT 12 Alkaline Phosphatase 52 Total Protein 8.1 Albumin 4.8 Globulin 3.3 Albumin/Globulin Ratio 1.5 Lipase 39 Urine Color YELLOW Urine Clarity CLEAR Urine pH 6.5 Ur Specific [place] 1.010 Urine Protein NEGATIVE Urine Glucose (UA) NEGATIVE Urine Ketones NEGATIVE Urine Occult Blood NEGATIVE Urine Nitrite NEGATIVE Urine Bilirubin NEGATIVE Urine Urobilinogen 0.2 (NORMAL) Ur Leukocyte Esterase NEGATIVE Ur Microscopic Review NOT INDICATED Urine Culture Comments NOT INDICATED Urine HCG, Qual NEGATIVE - Rads (name of study) CT A/P Radiology: Prelim report reviewed, See rad report PD MEDICAL DECISION MAKING - ED course Complexity details: reviewed results, re-evaluated patient, considered differential, d/w patient Departure - Departure Disposition: 01 Home, Self Care Clinical Impression: Abdominal pain Condition: Good Instructions: ED Abdominal Pain Unkn Cause Follow-Up: ISABELA BELLE MD [Primary Care Provider] - Prescriptions: Ondansetron Odt [Zofran] 4 mg TL Q6H PRN #10 tablet PRN Reason: Nausea / Vomiting Discharge Date/Time: 12/21/19 21:21
[2019-12-21] MEDS ORDERED: KETOROLAC 30 MG/ML VIAL IVP STA (19:44)
[2019-12-21] MEDS ORDERED: IOVERSOL 320 100 ML VIAL IVP ONE ×2 (20:06→20:40)
--- NOTE | 2019-12-21 20:57 | CT Report ---
Reason: RLQ pain, tenderness Procedure Date: 12/21/2019 Accession Number: [id number] / [id number] Procedure: CT - Abdomen/Pelvis W CPT Code: Final Report FULL RESULT: EXAM: CT ABDOMEN AND PELVIS EXAM DATE: 12/21/2019 08:38 PM. CLINICAL HISTORY: RLQ pain, tenderness. COMPARISONS: ABDOMEN/PELVIS W/ 11/02/2019 4:35 PM. TECHNIQUE: Routine helical CT imaging was performed through the abdomen and pelvis. IV contrast: OPTIRAY 320. Enteric contrast: No. Reconstructions: Coronal and sagittal. In accordance with CT protocol optimization, one or more of the following dose reduction techniques were utilized for this exam: automated exposure control, adjustment of mA and/or KV based on patient size, or use of iterative reconstructive technique. FINDINGS: Lung Bases: Unremarkable. Liver: Normal. No masses. Gallbladder/Bile Ducts: Unremarkable. Spleen: Normal. Pancreas: Normal. Adrenal Glands: Normal. Kidneys: Normal. No masses or hydronephrosis. Peritoneal Cavity/Bowel: Trace free fluid seen in the pelvis. No masses or acute inflammatory process. The appendix is well visualized and normal. Pelvic Organs: A crenulated cyst is seen in left ovary. The bladder and visualized pelvic organs are within normal limits. Vasculature: No aneurysms or other significant abnormality. Bones: No significant abnormality. Other: None. IMPRESSION: A crenulated postovulatory cyst is seen in left ovary. Trace free fluid in the pelvis. Normal appendix. No other significant abnormality. RADIA
[2019-12-21 21:03] VITALS: BP 109/65
[2019-12-21] MEDS ORDERED: ONDANSETRON ODT 4 MG TABLET TL STA (21:15)
== END 2019-12-21 21:21 | disposition home or self-care (01) ==
LOC: ED 16:52
DX: R10.31 Right lower quadrant pain (principal); N83.202 Unspecified ovarian cyst, left side
CPT/HCPCS: 36415; 74177; 80053; 81003; 81025; 83690; 85025; 96374; 99284; Q0162; Q9967; 81001; 87086

== ENCOUNTER 2020-01-28 17:37 | Emergency (ER) | payer OTHER ==
[2020-01-28 18:07] LABS: BILIRUBIN,URINE NEGATIVE (NEGATIVE); GLUCOSE, URINE (UA) NEGATIVE (NEGATIVE); KETONES,URINE (UA) NEGATIVE (NEGATIVE); LEUKOCYTE ESTERASE, URINE NEGATIVE (NEGATIVE); NITRITE,URINE NEGATIVE (NEGATIVE); OCCULT BLOOD,URINE TRACE-INTA (NEGATIVE); PROTEIN,URINE NEGATIVE (NEGATIVE); UROBILINOGEN,URINE 0.2 (NORMAL) E.U./dL (NORMAL)
[2020-01-28 18:10] LABS: CLARITY,URINE CLEAR (CLEAR); HCG UR QUAL NEGATIVE
[2020-01-28 18:21] LABS: BASOPHILS # (AUTO) 0.1 10^3/uL (0.0-0.1); BASOPHILS % (AUTO) 0.7 %; EOSINOPHILS # (AUTO) 0.2 10^3/uL (0.0-0.7); HGB - HEMOGLOBIN 13.2 g/dL (12.0-16.0); LYMPHOCYTES # (AUTO) 1.9 10^3/uL (1.5-3.5); LYMPHOCYTES % (AUTO) 27.4 %; MEAN CORPUSCULAR HEMOGLOBIN 30.1 pg (27.0-31.0); MEAN CORPUSCULAR VOLUME 94.1 fL (81.0-99.0); MEAN PLATELET VOLUME 9.2 fL (7.9-10.8); MONOCYTES # (AUTO) 0.5 10^3/uL (0.0-1.0); MONOCYTES % (AUTO) 6.7 %; NEUTROPHILS # (AUTO) 4.2 10^3/uL (1.5-6.6); NEUTROPHILS % (AUTO) 61.9 %; PLT - PLATELET COUNT 345 10^3/uL (130-450); RED BLOOD COUNT 4.38 10^6/uL (4.20-5.40); RED CELL DISTRIBUTION WIDTH 12.8 % (12.0-15.0); WHITE BLOOD COUNT 6.7 x10^3/uL (4.8-10.8)
[2020-01-28 18:35] LABS: ALBUMIN 4.7 g/dL (3.2-5.5); ALBUMIN/GLOBULIN RATIO 1.6 (1.0-2.2); BILIRUBIN,TOTAL 0.6 mg/dL (0.2-1.0); CALCIUM 9.3 mg/dL (8.5-10.3); CREATININE 0.8 mg/dL (0.4-1.0); TOTAL PROTEIN 7.7 g/dL (6.7-8.2)
--- NOTE | 2020-01-28 18:44 | ED Physician Documentation ---
History of Present Illness - Stated complaint Stated Complaint: PELVIC PX, FEELING FAINT, DIZZY - Chief complaint Chief Complaint: Abd Pain - History obtained from History obtained from: Patient - Additonal information Additional information: She is a 24-year-old female with history of ovarian cyst. She is here today with a 1 day history of left-sided pelvic pain. She also states she is had some heavy Menstruation since yesterday. States she normally goes about 3 pads a day, however she is been going through 5 pads a day since yesterday. She knows she was passing clots. She denies any abdominal pain, vomiting, or diarrhea. No fevers, congestion, or myalgias. She states she does feel weak and had a single near syncopal episode but did not fall. She states she feels lightheaded when she is walking or standing. She denies any history of prior anemia. No history of known menorrhagia. She states that this feels somewhat consistent with ovarian cyst she is had in the past but this is worse. She did have a CT the abdomen pelvis in our ER approximate 1 month ago. Left-sided ovarian cyst were noted at that time. No other abnormalities. Review of Systems Constitutional: denies: Fever, Chills Cardiac: denies: Chest pain / pressure Respiratory: denies: Dyspnea, Cough GI: reports: Nausea. denies: Abdominal Pain, Vomiting, Bloody / black stool : reports: Other (See HPI). 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, Other : None HEENT: None Psych: Depression, Anxiety, Bipolar disorder, Panic attacks Musculoskeletal: None Derm: None - Past Surgical History Past Surgical History: Yes /ELECTROSTATIC PAINT OPERATOR: section HEENT: Tonsil/Adenoidectomy - Present Medications Home Medications: Ambulatory Orders Medication Instructions Recorded Confirmed Alprazolam [Xanax] 2 mg PO TID 06/26/19 06/26/19 Hydrocodone/Acetaminophen 1 each PO Q6HR PRN #8 tablet 06/27/19 [Hydrocodone-Acetamin 5-325 mg] Butalb/Acetaminophen/Caffeine 1 each PO Q4H PRN #15 capsule 07/25/19 [Fioricet 50-300-40 mg Capsule] Loperamide [Imodium] 2 mg PO QID PRN #10 capsule 07/25/19 Metoclopramide [Reglan] 10 mg PO Q6H PRN #20 tablet 07/25/19 SUMAtriptan [Imitrex] 25 mg PO BID PRN #10 tablet 07/25/19 Amox/Clav 875/125 [Augmentin] 1 each PO Q12H #14 tablet 11/02/19 Ondansetron Odt [Zofran] 4 mg TL Q6H PRN #10 tablet 11/02/19 Oxycodone HCl/Acetaminophen 1 - 2 each PO Q6H PRN #6 tablet 11/02/19 [Percocet 5-325 mg Tablet] Ondansetron Odt [Zofran] 4 mg TL Q6H PRN #10 tablet 12/21/19 - Allergies Allergies/Adverse Reactions: Allergies Allergy/AdvReac Type Severity Reaction Status Date / Time fluoxetine [From Prozac] AdvReac Mild Dizziness Verified 01/28/20 17:49 sertraline [From Zoloft] AdvReac Dizziness Verified 01/28/20 17:49 - Social History Does the pt smoke?: No Smoking Status: Never smoker Does the pt drink ETOH?: No Does the pt have substance abuse?: No - Immunizations Immunizations are current?: Yes - POLST Patient has POLST: No PD ED PE NORMAL - Vitals Vital signs reviewed: Yes (She appears to be hemodynamically stable) - General General: Alert and oriented X 3, Well developed/nourished - HEENT HEENT: Atraumatic - Neck Neck: Supple, no meningeal sign - Respiratory Respiratory: No respiratory distress - Abdomen Abdomen: Normal bowel sounds, Soft, Other (She is point tender at the left lower quadrant without guarding. No appreciated masses.). No: Non distended - Back Back: No CVA TTP - Extremities Extremities: No deformity - Neuro Neuro: Alert and oriented X 3 Verbal: Oriented Results - Vitals Vitals: Vital Signs - 24 hr 01/28/20 01/28/20 01/28/20 17:49 17:55 19:02 Temperature 36.8 C Heart Rate 106 H 70 82 Heart Rate [ Sitting] Heart Rate [ Standing] Heart Rate [ Supine] Respiratory 18 16 Rate Blood Pressure 141/89 H 180/75 H 121/81 H Blood Pressure [Sitting] Blood Pressure [Standing] Blood Pressure [Supine] O2 Saturation 100 97 01/28/20 01/28/20 01/28/20 19:05 20:37 21:06 Temperature Heart Rate 80 81 Heart Rate [ 80 Sitting] Heart Rate [ 87 Standing] Heart Rate [ 82 Supine] Respiratory 16 16 Rate Blood Pressure 112/78 112/69 Blood Pressure 126/81 H [Sitting] Blood Pressure 133/96 H [Standing] Blood Pressure 121/81 H [Supine] O2 Saturation 98 98 Oxygen O2 Source Room air - Labs Labs: Laboratory Tests 01/28/20 01/28/20 01/28/20 18:00 18:05 18:05 WBC 6.7 RBC 4.38 Hgb 13.2 Hct 41.2 MCV 94.1 MCH 30.1 MCHC 32.0 RDW 12.8 Plt Count 345 MPV 9.2 Neut # (Auto) 4.2 Lymph # (Auto) 1.9 [place] # (Auto) 0.5 Eos # (Auto) 0.2 Baso # (Auto) 0.1 Absolute Nucleated RBC 0.00 Nucleated RBC % 0.0 Sodium 137 Potassium 3.6 Chloride 102 Carbon Dioxide 26 Anion Gap 9.0 BUN 11 Creatinine 0.8 Estimated GFR (MDRD) 87 L Glucose 83 Calcium 9.3 Total Bilirubin 0.6 AST 16 ALT 11 Alkaline Phosphatase 54 Total Protein 7.7 Albumin 4.7 Globulin 3.0 Albumin/Globulin Ratio 1.6 Lipase 41 Urine Color YELLOW Urine Clarity CLEAR Urine pH 7.0 Ur Specific [place] 1.010 Urine Protein NEGATIVE Urine Glucose (UA) NEGATIVE Urine Ketones NEGATIVE Urine Occult Blood TRACE-INTA Urine Nitrite NEGATIVE Urine Bilirubin NEGATIVE Urine Urobilinogen 0.2 (NORMAL) Ur Leukocyte Esterase NEGATIVE Ur Microscopic Review NOT INDICATED Urine Culture Comments NOT INDICATED Urine HCG, Qual NEGATIVE PD MEDICAL DECISION MAKING - ED course Complexity details: reviewed results, re-evaluated patient, considered differential, d/w patient, other (Patient symptom have improved. Her CBC, CMP, urinalysis, and pelvic ultrasound are essentially benign. She states she is unable to take ibuprofen due to chronic lithium use. She will use Tylenol for comfort. She agrees to contact her primary care provider to schedule follow-up appointment. She may return to the emergency room at anytime for worsening symptoms to consider further evaluation.) Departure - Departure Disposition: 01 Home, Self Care Clinical Impression: Menorrhagia Record reviewed to determine appropriate education?: Yes Instructions: ED Bleeding Menstrual Heavy Comments: Use acetaminophen 500 mg to 650 mg every 6-8 hours as needed for comfort. Contact your primary care provider to schedule follow-up appointment. Please return to emergency room as needed for any emergent changes or concerns.
--- NOTE | 2020-01-28 20:34 | Ultrasound Report ---
Reason: left sided pain Procedure Date: 01/28/2020 Accession Number: [id number] / [id number] Procedure: US - Pelvic Complete CPT Code: Final Report FULL RESULT: EXAM: PELVIC ULTRASOUND EXAM DATE: 01/28/2020 07:45 PM. CLINICAL HISTORY: Left sided pain. COMPARISON: ABDOMEN/PELVIS W12/21/2019 8:27 PM. TECHNIQUE: Realtime transabdominal pelvic scan performed to identify the uterus and adnexa and as an overview of other pelvic structures, followed by transvaginal scan to provide greater detail of the uterus and adnexa, with static image documentation. FINDINGS: Uterus: 7.8 x 3.7 x 4.5 cm. Anteverted position. Normal overall size and echotexture. Masses: None. Endometrium: 11 mm. Normal. Cervix: Unremarkable. Right Ovary: 4.0 x 2.8 x 2.7 cm, volume 16 cc. Background echogenicity and blood flow is unremarkable. Heterogeneous cystic structure 1.1 x 1.1 x 1.2 cm. No internal vascularity. Left Ovary: 2.6 x 1.7 x 3.0 cm, volume 7 cc. Normal echotexture and blood flow. No dominant cysts or masses. Free Fluid: Small volume. Other: None. IMPRESSION: Normal pelvic ultrasound for age. RADIA
[2020-01-28] MEDS ORDERED: KETOROLAC 30 MG/ML VIAL IVP STA (20:56)
[2020-01-28 21:08] VITALS: BP 112/69
== END 2020-01-28 22:00 | disposition home or self-care (01) ==
LOC: ED 17:37
DX: N92.0 Excessive and frequent menstruation with regular cycle (principal)
CPT/HCPCS: 36415; 76830; 76856; 80053; 81001; 81003; 81025; 83690; 85025; 87086; 96374; 99284

== ENCOUNTER 2020-11-10 18:33 | Emergency (ER) | payer OTHER ==
[2020-11-10 19:02] LABS: BILIRUBIN,URINE NEGATIVE (NEGATIVE); GLUCOSE, URINE (UA) NEGATIVE (NEGATIVE); KETONES,URINE (UA) NEGATIVE (NEGATIVE); LEUKOCYTE ESTERASE, URINE NEGATIVE (NEGATIVE); NITRITE,URINE NEGATIVE (NEGATIVE); OCCULT BLOOD,URINE SMALL (NEGATIVE); PH,URINE 5.5 PH (5.0-7.5); PROTEIN,URINE NEGATIVE (NEGATIVE); UROBILINOGEN,URINE 0.2 (NORMAL) E.U./dL (NORMAL)
[2020-11-10 19:07] LABS: CLARITY,URINE HAZY (CLEAR); HCG UR QUAL NEGATIVE
[2020-11-10 19:10] LABS: BASOPHILS # (AUTO) 0.1 10^3/uL (0.0-0.1); BASOPHILS % (AUTO) 0.6 %; EOSINOPHILS # (AUTO) 0.2 10^3/uL (0.0-0.7); EOSINOPHILS % (AUTO) 2.2 %; HGB - HEMOGLOBIN 13.7 g/dL (12.0-16.0); LYMPHOCYTES # (AUTO) 2.6 10^3/uL (1.5-3.5); LYMPHOCYTES % (AUTO) 32.3 %; MEAN CORPUSCULAR HEMOGLOBIN 30.1 pg (27.0-31.0); MEAN CORPUSCULAR HGB CONC 33.4 g/dL (32.0-36.0); MEAN CORPUSCULAR VOLUME 90.1 fL (81.0-99.0); MEAN PLATELET VOLUME 9.2 fL (7.9-10.8); MONOCYTES # (AUTO) 0.5 10^3/uL (0.0-1.0); MONOCYTES % (AUTO) 5.5 %; NEUTROPHILS # (AUTO) 4.8 10^3/uL (1.5-6.6); NEUTROPHILS % (AUTO) 59.2 %; PLT - PLATELET COUNT 381 10^3/uL (130-450); RED BLOOD COUNT 4.55 10^6/uL (4.20-5.40); RED CELL DISTRIBUTION WIDTH 12.9 % (12.0-15.0); WHITE BLOOD COUNT 8.1 x10^3/uL (4.8-10.8)
[2020-11-10 19:15] LABS: BACTERIA,URINE Rare /HPF (None Seen); SQUAMOUS EPITHELIAL CELL,UR FEW Squamous (<= Few)
[2020-11-10 19:22] LABS: ALBUMIN 4.7 g/dL (3.2-5.5); ALBUMIN/GLOBULIN RATIO 1.7 (1.0-2.2); BILIRUBIN,TOTAL 0.5 mg/dL (0.2-1.0); CALCIUM 9.5 mg/dL (8.5-10.3); CREATININE 0.7 mg/dL (0.4-1.0); TOTAL PROTEIN 7.4 g/dL (6.7-8.2)
[2020-11-10] MEDS ORDERED: KETOROLAC 60 MG/2 ML VIAL IM STA (20:58)
[2020-11-10] MEDS ORDERED: ONDANSETRON ODT 4 MG TABLET TL STA (20:59)
--- NOTE | 2020-11-10 21:06 | ED Physician Documentation ---
History of Present Illness - Stated complaint Stated Complaint: FEMALE - Chief complaint Chief Complaint: Abd Pain - Additonal information Additional information: 25-year-old female presents the emergency department for evaluation of acute left lower pelvic pain. She noticed it upon waking this morning. She has had no fevers dysuria urgency or frequency. She does endorse vomiting and feeling faint. She reports that she has a history of ectopic in the past and this pain feels like that. She did start having vaginal bleeding today but is unsure if she is . Review of Systems Constitutional: denies: Fever, Chills Eyes: reports: Reviewed and negative Ears: reports: Reviewed and negative Nose: reports: Reviewed and negative Throat: reports: Reviewed and negative Cardiac: reports: Reviewed and negative Respiratory: reports: Reviewed and negative GI: reports: Abdominal Pain, Nausea. denies: Vomiting : reports: Vaginal bleeding. 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, Other : None HEENT: None Psych: Depression, Anxiety, Bipolar disorder, Panic attacks Musculoskeletal: None Derm: None - Past Surgical History Past Surgical History: Yes /TEST TECH: section HEENT: Tonsil/Adenoidectomy - Present Medications Home Medications: Ambulatory Orders Medication Instructions Recorded Confirmed SUMAtriptan [Imitrex] 25 mg PO BID PRN #10 tablet 07/25/19 Gabapentin [Neurontin] 300 mg PO BID 11/10/20 11/10/20 Venlafaxine [Effexor] 37.5 mg PO DAILY 11/10/20 11/10/20 - Allergies Allergies/Adverse Reactions: Allergies Allergy/AdvReac Type Severity Reaction Status Date / Time fluoxetine [From Prozac] AdvReac Mild Dizziness Verified 11/10/20 18:43 sertraline [From Zoloft] AdvReac Dizziness Verified 11/10/20 18:43 - Social History Does the pt smoke?: No Smoking Status: Never smoker Does the pt drink ETOH?: No Does the pt have substance abuse?: No - Immunizations Immunizations are current?: Yes - POLST Patient has POLST: No PD ED PE EXPANDED - General General: Alert, No acute distress, Well developed/nourished - Cardiac Cardiac: Regular Rate, Regular Rhythm, Radial strong equal, Femoral strong equal, Cap refill < 2 sec. No: Murmur Present - Respiratory Respiratory: Clear to ausultation arlene. No: Distress, Labored - Abdomen Abdomen: Normal Bowel sounds, Tender to palpation (Very low pelvic tenderness to palpation without guarding or rebound. No right lower quadrant CVA or flank tenderness elicited.) - Extremities Extremities: Normal. No: Deformity, Tenderness Results - Vitals Vitals: Vital Signs - 24 hr 11/10/20 11/10/20 18:43 20:48 Temperature 36.8 C 36.8 C Heart Rate 79 72 Respiratory 18 18 Rate Blood Pressure 135/77 H 135/72 H O2 Saturation 98 98 Oxygen O2 Source Room air - Labs Labs: Laboratory Tests 11/10/20 11/10/20 11/10/20 18:34 19:01 19:01 WBC 8.1 RBC 4.55 Hgb 13.7 Hct 41.0 MCV 90.1 MCH 30.1 MCHC 33.4 RDW 12.9 Plt Count 381 MPV 9.2 Neut # (Auto) 4.8 Lymph # (Auto) 2.6 [place] # (Auto) 0.5 Eos # (Auto) 0.2 Baso # (Auto) 0.1 Absolute Nucleated RBC 0.00 Nucleated RBC % 0.0 Sodium 140 Potassium 3.8 Chloride 105 Carbon Dioxide 27 Anion Gap 8.0 BUN 13 Creatinine 0.7 Estimated GFR (MDRD) 101 Glucose 86 Calcium 9.5 Total Bilirubin 0.5 AST 16 ALT 17 Alkaline Phosphatase 47 Total Protein 7.4 Albumin 4.7 Globulin 2.7 Albumin/Globulin Ratio 1.7 Lipase 46 Urine Color YELLOW Urine Clarity HAZY Urine pH 5.5 Ur Specific [place] 1.025 Urine Protein NEGATIVE Urine Glucose (UA) NEGATIVE Urine Ketones NEGATIVE Urine Occult Blood SMALL H Urine Nitrite NEGATIVE Urine Bilirubin NEGATIVE Urine Urobilinogen 0.2 (NORMAL) Ur Leukocyte Esterase NEGATIVE Urine RBC 6-10 H Urine WBC 0-3 Ur Squamous Epith Cells FEW Squamous Urine Bacteria Rare Ur Microscopic Review INDICATED Urine Culture Comments NOT INDICATED Urine HCG, Qual NEGATIVE PD MEDICAL DECISION MAKING - ED course Complexity details: reviewed results, re-evaluated patient, considered differential, d/w patient ED course: This is a very well-appearing 25-year-old female that presents to the emergency department for acute lower pelvic pain that she noticed this morning. She is not . Screening labs reveal no anemia and unremarkable serum electrolytes. Given the location of the pain I am most suspicious for an ovarian cyst/torsion. Pelvic ultrasound is pending. 2144: Patient is requesting to be discharged home. She reports that she has nobody to care for her son at home and can no longer remain in the emergency department. We discussed that the etiology of her lower back pain is not ce rtain at this time. I did recommend that she stay for the ultrasound but understand that she needs to leave. She will be discharged AGAINST MEDICAL ADVICE however she was told that she needs to return at any point for worsening pain or evaluation she is free to at any time Departure - Departure Disposition: 07 Against Medical Advice Clinical Impression: Pelvic pain Condition: Stable Record reviewed to determine appropriate education?: Yes Comments: You were seen today for lower pelvic pain. As we discussed your labs are essentially normal. However the cause of the lower pelvic pain is not certain. I suspect that you may have an ovarian cyst but without imaging I cannot determine this. I understand that you need to leave to care for your son. You are welcome to return at any time for repeat evaluation and imaging.
[2020-11-10 22:01] VITALS: BP 132/70
--- OUTSIDE RECORDS SUMMARY | 2020-11-11 04:55 | EXTERNAL MEDICAL SUMMARY RPT | Continuity of Care Document ---
:1995 Demographics Phone Unavailable Preferred Language Unknown Marital Status Unknown [employer] Affiliation Unknown Race Unknown Ethnic Group Unknown Author Organization [facility] Address [address] [place] [address] Phone Support Name Relationship Address Phone SE Unavailable Unavailable Unavailable Allergies date description facility Metal [facility] SULFASALAZINE [facility] NO KNOWN ENVIRONMENTAL ALLERGIES idb [facility] PENICILLINS [facility] Codeine [facility] Metoprolol [facility] Metronidazole [facility] Morphine [facility] Iron [facility] Sertraline [facility] Levofloxacin [facility] Cephalosporins [facility] Penicillins [facility] Sulfa Antibiotics [facility] SHELLFISH [facility] ALPRAZOLAM [facility] HYDROCHLOROTHIAZIDE [facility] SERTRALINE [facility] OXYCODONE-ACETAMINOPHEN [facility] fluoxetine [facility] sertraline [facility] Results Social History date description facility [phone]
--- NOTE | 2020-11-11 09:05 | Ultrasound Report ---
PROCEDURE: Pelvic w/Doppler Complete INDICATIONS: acute left lower pelvic pain TECHNIQUE: Real-time scanning was performed of the pelvic organs, with image documentation. Additional endovagi nal scanning was necessary due to incomplete visualization of the adnexal and endometrial structures by transabdominal scanning. COMPARISON: None. FINDINGS: Transabdominal scanning: Limited scanning through the kidneys shows no hydronephrosis. No pathologi c free abdominal or pelvic fluid. Endovaginal scanning: Uterus: Uterus is normal in size at 7.5 x 3.8 x 4.4 cm. The endometrium measures 6.5 mm in combined thickness. Ovaries: Right ovary measures 3.6 x 2.4 x 3.3 cm, volume 14.98 cc. Complex focus of echogenicity is identified measuring 2.2 x 1.6 x 2.4 cm. Left ovary measures 2.8 x 2.1 x 2.6 cm, volume 7.87 cc. Bila teral ovarian arterial and venous flow are identified. IMPRESSION: 1. Complex right ovarian cyst suggestive of hemorrhagic cyst. The above findings are concordant with preliminary report. Reviewed by: Jazmin Mendez MD on 11/11/2020 9:04 AM [facility] Approved by: Jazmin Mendez MD on 11/11/2020 9:04 AM PST Station ID: [id number]
== END 2020-11-11 00:14 | disposition home or self-care (01) ==
LOC: ED 18:33
DX: N83.201 Unspecified ovarian cyst, right side (principal); R10.2 Pelvic and perineal pain
CPT/HCPCS: 36415; 76856; 80053; 81001; 81025; 83690; 85025; 93975; 96372; 99284; Q0162; 81003; 87086

== ENCOUNTER 2021-01-05 16:57 | Emergency (ER) | payer OTHER ==
[2021-01-05] MEDS ORDERED: SODIUM CHLORIDE 0.9% 1,000 ML IV STA (17:41)
[2021-01-05] MEDS ORDERED: ONDANSETRON 4 MG/2 ML VIAL IVP STA (17:41)
--- NOTE | 2021-01-05 17:44 | ED Physician Documentation ---
History of Present Illness - Stated complaint Stated Complaint: BREAST PX,VOMITING,NAUSEA - Chief complaint Chief Complaint: General - History obtained from History obtained from: Patient - Additonal information Additional information: Patient comes emergency department chief complaint of breast itching and pain bilaterally for the last month and also, of nausea and vomiting. Patient states that she initially thought she might be , because her period was late, but then she started bleeding 2 days ago. She states that it seems heavier than her normal menses. Patient states that her breasts have just felt full and painful and itchy, but she has not noticed any redness, mass, induration, or localized swelling. Patient states that she still nauseated. She denies any abdominal pain., Other than menstrual type cramps. No lightheadedness or dizziness. No fever or chills. No dysuria. Patient does have breast implants which were placed about a year and a half ago. She states that she got implants that her doctor said have a very low incidence of complication. She has not had any trouble with the implants that she has had them. No other complaints at this time. Review of Systems Ten Systems: 10 systems reviewed and negative Constitutional: reports: Reviewed and negative Eyes: reports: Reviewed and negative Ears: reports: Reviewed and negative Nose: reports: Reviewed and negative Throat: reports: Reviewed and negative Cardiac: reports: Reviewed and negative Respiratory: reports: Reviewed and negative GI: reports: Nausea, Vomiting : reports: Vaginal bleeding Skin: reports: Reviewed and negative Musculoskeletal: reports: Reviewed and negative Neurologic: reports: Reviewed and negative Psychiatric: reports: Reviewed and negative Endocrine: reports: Reviewed and negative Immunocompromised: reports: Reviewed and negative PD PAST MEDICAL HISTORY - Past Medical History Cardiovascular: None Respiratory: None Neuro: None Endocrine/Autoimmune: None GI: None, Cholelithiasis 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, Other : None HEENT: None Psych: Depression, Anxiety, Bipolar disorder, Panic attacks Musculoskeletal: None Derm: None - Past Surgical History Past Surgical History: Yes /CASK MAKER: section HEENT: Tonsil/Adenoidectomy - Present Medications Home Medications: Ambulatory Orders Medication Instructions Recorded Confirmed Ondansetron Odt [Zofran] 4 mg TL Q6H PRN #10 tablet 01/05/21 hydrOXYzine HCL [Hydroxyzine HCl] 25 mg PO Q6H PRN #24 tablet 01/05/21 predniSONE [Deltasone] 60 mg PO DAILY 5 Days #15 tablet 01/05/21 - Allergies Allergies/Adverse Reactions: Allergies Allergy/AdvReac Type Severity Reaction Status Date / Time fluoxetine [From Prozac] AdvReac Mild Dizziness Verified 01/05/21 17:03 sertraline [From Zoloft] AdvReac Dizziness Verified 01/05/21 17:03 - Social History Does the pt smoke?: No Smoking Status: Never smoker Does the pt drink ETOH?: No Does the pt have substance abuse?: No - Immunizations Immunizations are current?: Yes - POLST Patient has POLST: No PD ED PE NORMAL - Vitals Vital signs reviewed: Yes - General General: Alert and oriented X 3, No acute distress, Well developed/nourished - HEENT HEENT: Atraumatic, PERRL, EOMI, Moist mucous membranes - Neck Neck: Supple, no meningeal sign - Cardiac Cardiac: RRR, No murmur - Respiratory Respiratory: Clear bilaterally - Abdomen Abdomen: Soft, Non distended, Other (Mild suprapubic tenderness, no rebound or guarding.) - Derm Derm: Normal color, Warm and dry, No rash - Extremities Extremities: No deformity, No edema, No calf tenderness / cord - Neuro Neuro: Alert and oriented X 3 - Psych Psych: Normal mood, Normal affect PD ED PE EXPANDED - Free text exam Free text exam: Breasts are symmetrical bilaterally. No deformity of the breast and cells, or of the areola or nipple on either side. No discharge. No peau d'orange. No axillary lymphadenopathy. There is very faint erythema symmetrically in the medial upper quadrants of each breast. No streaking. There is mild tenderness over the mildly erythematous area. No rash. Results - Vitals Vitals: Oxygen O2 Source Room air - Labs Labs: Laboratory Tests 01/05/21 17:51 HCG, Quant < 0.60 PD MEDICAL DECISION MAKING - ED course Complexity details: reviewed results, re-evaluated patient, considered differential, d/w patient ED course: Pt was treated for her nausea and vomiting with IV fluids and Zofran. test was negative. I discussed with the pt that given the symmetrical nature of her very faint breast erythema, plus lack of other findings consistent with infection, I do not feel that she has cellulitis. Also, the pt has no masses or other breast changes concerning for cancer. Her implants are symmetrical, and I do not find evidence of leakage. As such, I am not sure what is causing the itching and feeling of breast fullness the pt has had for the past month. I hav e encouraged her to follow up as an outpatient. It is possible she has skin irritation from her bra, or from a soap/detergent, though pt has had no sx elsewhere, and is not using anything new. She has not vomited in the ED, and I suspect a benign etiology of this. I will prescribe ODT Zofran. We have discussed the usual indications for return. Departure - Departure Disposition: Home, Self Care Clinical Impression: Breast pain in female Vomiting Qualifiers: Vomiting type: unspecified Vomiting Intractability: non-intractable Nausea presence: with nausea Qualified Code(s): R11.2 - Nausea with vomiting, unspecified Condition: Stable Instructions: Benign Conditions Breast, ED Erythema, ED Nausea Vomiting Follow-Up: Florence Gamino MD [Provider Admit Priv/Credential] - Salina Mondragon MD [Provider Admit Priv/Credential] - Prescriptions: predniSONE [Deltasone] 60 mg PO DAILY 5 Days #15 tablet hydrOXYzine HCL [Hydroxyzine HCl] 25 mg PO Q6H PRN #24 tablet PRN Reason: Itching Ondansetron Odt [Zofran] 4 mg TL Q6H PRN #10 tablet PRN Reason: Nausea / Vomiting Comments: Your test is negative. It is not clear why you continue to have being the itching and pain over your breasts. This may be hormonally related, particularly if your period was late this month. There is no evidence of breast cancer or infection at this time. It is important that you follow-up with your meat dresser to discuss any further concerns in this regard. You may call the meat dresser of your choosing or follow-up in the [place] [facility]. Please take the Zofran for nausea. This is most likely caused by a viral illness and will resolve on its own in time. You may drink clear liquids, but avoid eating solid food until you are feeling better. Discharge Date/Time: 01/05/21 19:24
[2021-01-05] MEDS ORDERED: hydrOXYzine PAMOATE 25 MG CAPSULE PO STA (18:57)
[2021-01-05] MEDS ORDERED: predniSONE 20 MG TABLET PO STA (18:57)
[2021-01-05 19:22] VITALS: BP 132/79
== END 2021-01-05 19:24 | disposition home or self-care (01) ==
LOC: ED 16:57
DX: N64.4 Mastodynia (principal); L29.9 Pruritus, unspecified; L53.9 Erythematous condition, unspecified; R11.2 Nausea with vomiting, unspecified; Z98.82 Breast implant status; Z32.02 Encounter for pregnancy test, result negative
CPT/HCPCS: 36415; 84702; 96374; 99283; 99284; A9270; J7512